=== PATIENT | male | born 1960 | race Caucasian/White ===

== ENCOUNTER → 2020-04-23 10:08 | Outpatient (BNVA) | payer MEDICARE, MEDICAID, SELFPAY | PROVIDERS: Family Provider Family Medicine; PCP Family Medicine; Visit Provider Family Medicine | DX: I10 Essential (primary) hypertension (principal); E11.42 Type 2 diabetes mellitus with diabetic polyneuropathy; Z79.4 Long term (current) use of insulin; E78.2 Mixed hyperlipidemia; G47.00 Insomnia, unspecified; E78.5 Hyperlipidemia, unspecified; I25.10 Atherosclerotic heart disease of native coronary artery without angina pectoris; R53.83 Other fatigue; F51.01 Primary insomnia; Z68.32 Body mass index [BMI] 32.0-32.9, adult; Z79.899 Other long term (current) drug therapy | CPT/HCPCS: 80053; 80061; 82607; 82652; 83036; 84443; 85025 ==

== ENCOUNTER → 2020-06-11 13:00 | Outpatient (BNVA) | payer MEDICARE, MEDICAID, SELFPAY | PROVIDERS: Family Provider Family Medicine; PCP Family Medicine; Referring Provider Family Medicine; Visit Provider Family Medicine | DX: R53.83 Other fatigue (principal) | CPT/HCPCS: 84439; 84443; 84481 ==

== ENCOUNTER → 2020-07-09 13:41 | Outpatient (BNVA) | payer MEDICARE, MEDICAID, SELFPAY | PROVIDERS: Family Provider Family Medicine; PCP Family Medicine; Referring Provider Family Medicine; Visit Provider Internal Medicine | DX: E05.90 Thyrotoxicosis, unspecified without thyrotoxic crisis or storm (principal); E11.42 Type 2 diabetes mellitus with diabetic polyneuropathy; Z79.4 Long term (current) use of insulin; I10 Essential (primary) hypertension | CPT/HCPCS: 99204 ==

== ENCOUNTER → 2020-07-14 08:27 | Outpatient (BNVA) | payer MEDICARE, MEDICAID, SELFPAY | PROVIDERS: Family Provider Family Medicine; PCP Family Medicine; Referring Provider Internal Medicine; Visit Provider Internal Medicine | DX: E05.90 Thyrotoxicosis, unspecified without thyrotoxic crisis or storm (principal) | CPT/HCPCS: 83516 ==

== ENCOUNTER → 2020-09-29 10:28 | Outpatient (BNVA) | payer MEDICARE, MEDICAID, SELFPAY | PROVIDERS: Family Provider Family Medicine; PCP Family Medicine; Visit Provider Family Medicine | DX: E11.9 Type 2 diabetes mellitus without complications (principal); E11.42 Type 2 diabetes mellitus with diabetic polyneuropathy; Z79.4 Long term (current) use of insulin; I10 Essential (primary) hypertension; I25.10 Atherosclerotic heart disease of native coronary artery without angina pectoris; E78.5 Hyperlipidemia, unspecified; E05.90 Thyrotoxicosis, unspecified without thyrotoxic crisis or storm; F51.01 Primary insomnia; R79.89 Other specified abnormal findings of blood chemistry; E78.2 Mixed hyperlipidemia | CPT/HCPCS: 80053; 83036; 84439; 84443; 84480 ==

== ENCOUNTER → 2020-10-02 09:48 | Outpatient (BNVA) | payer MEDICARE, MEDICAID, SELFPAY | PROVIDERS: Family Provider Family Medicine; PCP Family Medicine; Visit Provider Internal Medicine | DX: E05.90 Thyrotoxicosis, unspecified without thyrotoxic crisis or storm (principal); E11.42 Type 2 diabetes mellitus with diabetic polyneuropathy; Z79.4 Long term (current) use of insulin; I10 Essential (primary) hypertension; R74.01 Elevation of levels of liver transaminase levels | CPT/HCPCS: 99213 ==

== ENCOUNTER → 2020-12-03 11:48 | Outpatient (BNVA) | payer MEDICARE, MEDICAID, SELFPAY | PROVIDERS: Family Provider Family Medicine; PCP Family Medicine; Referring Provider Internal Medicine; Visit Provider Internal Medicine | DX: E05.90 Thyrotoxicosis, unspecified without thyrotoxic crisis or storm (principal); Z79.899 Other long term (current) drug therapy; R74.01 Elevation of levels of liver transaminase levels | CPT/HCPCS: 80053; 84439; 84443; 84480 ==

== ENCOUNTER → 2020-12-05 09:58 | Outpatient (BNVA) | payer MEDICARE, MEDICAID, SELFPAY | PROVIDERS: Family Provider Family Medicine; PCP Family Medicine; Visit Provider Internal Medicine | DX: E05.90 Thyrotoxicosis, unspecified without thyrotoxic crisis or storm (principal); E87.2 Acidosis; I10 Essential (primary) hypertension | CPT/HCPCS: 99214 ==

== ENCOUNTER 2021-05-10 16:28 | Emergency (ER) | payer MEDICARE, MEDICAID, SELFPAY ==
[2021-05-10 17:19] VITALS: BP 181/77; PULSE 96; RESP 22; TEMP 38.4; O2SAT 94; BMI 29.0
--- NOTE | 2021-05-10 17:24 | XRR_ITS ---
PROCEDURE INFORMATION: Exam: XR Chest Exam date and time: 05/10/2021 5:24 PM Age: 61 years old Clinical indication: Shortness of breath; Prior surgery; Surgery type: Cardiac stents; Patient HX: SOB; Additional info: Dyspnea fever TECHNIQUE: Imaging protocol: XR of the chest. Views: 1 view. COMPARISON: CR Chest 1 [place] [id number] 06/28/2017 2:14 PM FINDINGS: Lungs: There is a right upper lobe parenchymal density consistent with pneumonia Pleural spaces: Unremarkable. No pleural effusion. No pneumothorax. Heart/Mediastinum: Unremarkable. No cardiomegaly. Bones/joints: Unremarkable. XR/XR chest 1V portable [id number] IMPRESSION: Right upper lobe pneumonia
--- NOTE | 2021-05-10 17:24 | ECG_ITS ---
[facility] Test Date: 2021-05-10 Pat Name: Solis Fischer Department: Room: Gender: Male Otolaryngologist: : 1960 Requested By: Ajay Fields Order Number: [id number] Reading MD: ZACH WANG Measurements Intervals [place] Rate: 87 P: 70 [place]: 170 QRS: 31 QRSD: 82 T: 123 QT: 340 QTc: 410 Interpretive Statements SINUS RHYTHM POSSIBLE LEFT ATRIAL ENLARGEMENT [-0.1mV P WAVE IN V1/V2] ST DEVIATION AND MODERATE T-WAVE ABNORMALITY, CONSIDER ANTEROLATERAL ISCHEMIA [-0.1+ mV T WAVE IN V3-V6] Compared to ECG 06/30/2017 04:29:53 No significant changes Electronically Signed On 05-11-2021 23:34:44 CDT by ZACH WANG [id number]
--- NOTE | 2021-05-10 17:28 | ED_ITS ---
Documented by User: Ajay Joseph DO 05/10/21 18:15 HPI - Fever General: Chief Complaint: Fever Stated Complaint: headache, sense of falling Time Seen by Provider: 05/10/21 17:24 History of Present Illness: HPI Narrative: 61-year-old male presents with fever cough generalized weakness myalgias and decreased appetite began today. Patient has had some nausea he denies any diarrhea. Has not had any anosmia. He has some mild myalgias no real abdominal pain no dysuria urgency or frequency he is at a slightly productive cough but mostly clear mucousy sputum nothing purulent. He is diabetic and has a known history of heart disease he denies any chest pain. His has been vaccinated and is asymptomatic at this time but he unfortunately has not yet been vaccinated. MD elicited complaint: fever, malaise and weakness Pertinent past history: diabetes Onset (ago): minute(s) Measured temperature: 101.1 F Exacerbating factors: nothing Relieving factors: nothing Associated symptoms: Reports chills, cough, headache(s), myalgias, nausea and short of breath; Deny abdominal pain, flank pain, chest pain, confusion, diarrhea, dysuria, extremity pain, nasal congestion, night sweats, rash, rhinorrhea, sinus pain, stiffness, sore throat, vomiting or weight loss Treatments prior to arrival fever: none Review of Systems Const: Reports: chills; Denies: night sweats ENMT: Denies: nasal congestion or sinus pain Card: Denies: chest pain Resp: Denies: dyspnea, productive cough or non-productive cough GI: Reports: nausea; Denies: abdominal pain, vomiting or diarrhea : Denies: flank pain or dysuria Musc: Denies: extremity pain Skin/Breast: Denies: rash or pruritus Neuro: Reports: headache(s); Denies: confusion PFSH ED PFSH: Medical History CAD (coronary artery disease) History of stent Diabetic neuropathy Essential hypertension History of myocardial infarction Hyperlipidemia Type 2 diabetes mellitus Surgical History Stented coronary artery Family History Mother CAD (coronary artery disease) Sister Cancer Social History Smoking and tobacco status: current every day smoker cigarettes Packs smoked per day: 1.5 Quit status (tobacco): not considering quitting Second hand smoke exposure: No Alcohol intake: never Desire information about alcohol rehabilitation?: No Desire information about substance/drug rehabilitation?: No History of recent travel: No Current gender identity: Male Physical Exam Const: COMMON NORMALS: no acute distress GENERAL APPEARANCE: cooperative and comfortable ORIENTATION/CONSCIOUSNESS: Yes awake, Yes oriented to person, Yes oriented to place and Yes oriented to time HENMT: COMMON NORMALS: normocephalic, atraumatic and hearing grossly normal bilaterally HEAD & SCALP: normocephalic and atraumatic Neck/C-Spine: COMMON NORMALS: no JVD Resp: COMMON NORMALS: normal respiratory effort, No retractions, No use of accessory muscles and clear to auscultation bilaterally AUSCULTATION: clear to auscultation bilaterally Cardio: COMMON NORMALS: no JVD, regular rate, regular rhythm and No murmurs present (Cardio) RATE: regular rate RHYTHM: regular rhythm GI: COMMON NORMALS: Soft to palpation and No hepatosplenomegaly present AUSCULTATION: Yes normoactive bowel sounds PALPATION: Yes Soft to palpation, No Tenderness to palpation present (GI), No Guarding due to palpation present (GI) and Yes No hepatosplenomegaly present Extremity: COMMON NORMALS: normal to inspection, capillary refill normal, no clubbing, cyanosis or edema, no calf tenderness and no pedal edema Neuro: SENSORIUM/ORIENTATION: Yes oriented to person, Yes oriented to place and Yes oriented to time Skin: COMMON NORMALS: no rashes or lesions noted GENERAL SKIN EXAM: no rashes or lesions noted Course Vital Signs: Vital signs: Vital Signs Temperature 101.1 F H 05/10/21 17:19 Pulse Rate 91 05/10/21 22:22 Respiratory Rate 22 H 05/10/21 22:22 Blood Pressure 176/70 05/10/21 22:22 Pulse Oximetry 94 05/10/21 22:22 MDM - Fever MDM Narrative: Medical decision making narrative: Turned over to Dr. Morgan at change of shift see his notes for final diagnosis and disposition Lab Data: Labs: Lab Results 05/10/21 05/10/21 05/10/21 Range/Units 17:53 18:33 18:33 WBC (4.0-10.0) 10^3/ uL RBC (4.1-5.3) 10^6/u L Hgb (11.7-16.6) g/dL Hct (42.0-52.0) % MCV (80-94) fL MCH (28.0-34.0) pg MCHC (30.0-36.0) g/dL RDW (12.1-15.1) % Plt Count (130-400) 10^3/c mm MPV (7.4-10.4) fL Neut % (Auto) % Lymph % (Auto) % [place] % (Auto) % Eos % (Auto) % Baso % (Auto) % Neut # (Auto) (1.8-7.7) 10^3/u L Lymph # (Auto) (0.8-4.8) 10^3/u L [place] # (Auto) (0.2-0.9) 10^3/u L Eos # (Auto) (0.0-0.8) 10^3/u L Baso # (Auto) (0.0-0.1) 10^3/u L Nucleated RBC % (a uto) % Nucleated RBCs # /100WBC D-Dimer (0-0.59) ug/mIFE U Specimen Type Arterial Sample Site Brachial, left ABG pH 7.49 H (7.35-7.45) ABG pCO2 27.6 L (35-45) mmHg ABG pO2 67.6 L (80.0-100.0) mmH g ABG HCO3 20.9 L (22-26) mmol/L ABG Base Excess -0.7 (-2.0-2.0) mmol/ L Bill Test Pos Hematocrit 53.2 H (42-52) % Injection Operator ID Jmnn Sodium (136-145) mmol/L Potassium (3.5-5.1) mmol/L Chloride (98-107) mmol/L Carbon Dioxide (22-29) mmol/L Anion Gap (5-19) BUN (8-23) mg/dL Creatinine (0.7-1.2) mg/dL GFR Calculation (90-130) mL/min Glucose (65-115) mg/dL Calculated Osmolal ity (285-295) mOsm/k g Lactic Acid (0.5-2.2) mmol/L Calcium (8.5-10.5) mg/dL Total Bilirubin (0.15-1.2) mg/dL AST (0-40) U/L ALT (0-41) U/L Alkaline Phosphata se (40-130) IU/L Creatine Kinase (39-308) U/L Troponin T Baselin e (0-15) ng/L C-Reactive Protein (0.0-4.9) mg/L Total Protein (6.6-8.7) g/dL Albumin (3.5-5.2) g/dL Globulin (1.3-4.6) g/dL Procalcitonin (0-0.5) ng/mL Influenza Type A A g Negative (Negative) Influenza Type B A g Negative (Negative) SARS-CoV-2 Ag (Rap id) Negative (Negative) 05/10/21 05/10/21 05/10/21 Range/Units 19:20 19:20 19:20 WBC 14.9 H (4.0-10.0) 10^3/ uL RBC 5.64 H (4.1-5.3) 10^6/u L Hgb 17.2 H (11.7-16.6) g/dL Hct 47.4 (42.0-52.0) % MCV 84.0 (80-94) fL MCH 30.5 (28.0-34.0) pg MCHC 36.3 H (30.0-36.0) g/dL RDW 12.3 (12.1-15.1) % Plt Count 177 (130-400) 10^3/c mm MPV 10.8 H (7.4-10.4) fL Neut % (Auto) 73.7 % Lymph % (Auto) 13.4 % [place] % (Auto) 11.7 % Eos % (Auto) 0.1 % Baso % (Auto) 0.6 % Neut # (Auto) 10.97 H (1.8-7.7) 10^3/u L Lymph # (Auto) 2.0 (0.8-4.8) 10^3/u L [place] # (Auto) 1.7 H (0.2-0.9) 10^3/u L Eos # (Auto) 0.0 (0.0-0.8) 10^3/u L Baso # (Auto) 0.1 (0.0-0.1) 10^3/u L Nucleated RBC % (a uto) 0 % Nucleated RBCs # 0.0 /100WBC D-Dimer 0.43 (0-0.59) ug/mIFE U Specimen Type Sample Site ABG pH (7.35-7.45) ABG pCO2 (35-45) mmHg ABG pO2 (80.0-100.0) mmH g ABG HCO3 (22-26) mmol/L ABG Base Excess (-2.0-2.0) mmol/ L Bill Test Hematocrit (42-52) % Injection Operator ID Sodium 127 L (136-145) mmol/L Potassium 3.8 (3.5-5.1) mmol/L Chloride 93 L (98-107) mmol/L Carbon Dioxide 18 L (22-29) mmol/L Anion Gap 19.8 H (5-19) BUN 9 (8-23) mg/dL Creatinine 0.7 (0.7-1.2) mg/dL GFR Calculation 114.3 (90-130) mL/min Glucose 163 H (65-115) mg/dL Calculated Osmolal ity 266 L (285-295) mOsm/k g Lactic Acid (0.5-2.2) mmol/L Calcium 8.8 (8.5-10.5) mg/dL Total Bilirubin 1.1 (0.15-1.2) mg/dL AST 12 (0-40) U/L ALT 13 (0-41) U/L Alkaline Phosphata se 76 (40-130) IU/L Creatine Kinase 40 (39-308) U/L Troponin T Baselin e (0-15) ng/L C-Reactive Protein 99.5 H (0.0-4.9) mg/L Total Protein 7.2 (6.6-8.7) g/dL Albumin 4.1 (3.5-5.2) g/dL Globulin 3.1 (1.3-4.6) g/dL Procalcitonin 0.16 (0-0.5) ng/mL Influenza Type A A g (Negative) Influenza Type B A g (Negative) SARS-CoV-2 Ag (Rap id) (Negative) 05/10/21 05/10/21 Range/Units 19:20 19:20 WBC (4.0-10.0) 10^3/ uL RBC (4.1-5.3) 10^6/u L Hgb (11.7-16.6) g/dL Hct (42.0-52.0) % MCV (80-94) fL MCH (28.0-34.0) pg MCHC (30.0-36.0) g/dL RDW (12.1-15.1) % Plt Count (130-400) 10^3/c mm MPV (7.4-10.4) fL Neut % (Auto) % Lymph % (Auto) % [place] % (Auto) % Eos % (Auto) % Baso % (Auto) % Neut # (Auto) (1.8-7.7) 10^3/u L Lymph # (Auto) (0.8-4.8) 10^3/u L [place] # (Auto) (0.2-0.9) 10^3/u L Eos # (Auto) (0.0-0.8) 10^3/u L Baso # (Auto) (0.0-0.1) 10^3/u L Nucleated RBC % (a uto) % Nucleated RBCs # /100WBC D-Dimer (0-0.59) ug/mIFE U Specimen Type Sample Site ABG pH (7.35-7.45) ABG pCO2 (35-45) mmHg ABG pO2 (80.0-100.0) mmH g ABG HCO3 (22-26) mmol/L ABG Base Excess (-2.0-2.0) mmol/ L Bill Test Hematocrit (42-52) % Injection Operator ID Sodium (136-145) mmol/L Potassium (3.5-5.1) mmol/L Chloride (98-107) mmol/L Carbon Dioxide (22-29) mmol/L Anion Gap (5-19) BUN (8-23) mg/dL Creatinine (0.7-1.2) mg/dL GFR Calculation (90-130) mL/min Glucose (65-115) mg/dL Calculated Osmolal ity (285-295) mOsm/k g Lactic Acid 1.4 (0.5-2.2) mmol/L Calcium (8.5-10.5) mg/dL Total Bilirubin (0.15-1.2) mg/dL AST (0-40) U/L ALT (0-41) U/L Alkaline Phosphata se (40-130) IU/L Creatine Kinase (39-308) U/L Troponin T Baselin e 11 (0-15) ng/L C-Reactive Protein (0.0-4.9) mg/L Total Protein (6.6-8.7) g/dL Albumin (3.5-5.2) g/dL Globulin (1.3-4.6) g/dL Procalcitonin (0-0.5) ng/mL Influenza Type A A g (Negative) Influenza Type B A g (Negative) SARS-CoV-2 Ag (Rap id) (Negative) Discharge Plan Discharge Patient Disposition: Home Clinical Impression: Viral infection Condition: Stable Prescriptions: New dexamethasone 6 mg tablet 6 mg PO DAILY Qty: 5 RF: 0 doxycycline hyclate 100 mg capsule 100 mg PO BID 7 Days Qty: 14 RF: 0 No Action methimazole 5 mg tablet 5 mg PO BID Qty: 90 RF: 3 metoprolol succinate 25 mg tablet extended release 24 hr 25 mg PO DAILY 30 Days Qty: 30 RF: 5 lisinopril 30 mg tablet 30 mg PO DAILY 30 Days Qty: 30 RF: 5 Advil 200 mg Tablet 400 mg PO PRN RF: 0 metformin 500 mg tablet 500 mg PO BID RF: 0 clopidogrel 75 mg tablet 75 mg PO DAILY RF: 0 aspirin 81 mg tablet,delayed release (DR/EC) 81 mg PO QAM RF: 0 rosuvastatin 20 mg tablet 20 mg PO QPM RF: 0 Discharge Orders: Discharge ED (Routine); Ordered 05/10/21 Ordered By: Dayday Morgan Referrals: Lalitha Jules MD [Primary Care Provider] - 4-7 days Patient Instructions: Viral Syndrome (ED) Activity Restrictions/Additional Instructions: Return for inability to control fever, worsening shortness of breath despite treatment, chest pain or discomfort, any other concerning symptoms. A confirmatory PCR test for COVID-19 has been sent. He will get a call in 48 hours or so with those results. Continue to quarantine at home until that result is negative. Given your risk factors, you are being covered with antibiotics. If your PCR is positive, we will have you return for monoclonal antibody infusion. Coding Level of Care Code ED Lease Broker for Chg Fwd Exam Comprehensive Documented by User: Dayday Morgan DO 05/11/21 01:23 HPI - Fever General: Chief Complaint: Fever Stated Complaint: headache, sense of falling Time Seen by Provider: 05/10/21 17:24 PFSH ED PFSH: Medical History CAD (coronary artery disease) History of stent Diabetic neuropathy Essential hypertension History of myocardial infarction Hyperlipidemia Type 2 diabetes mellitus Surgical History Stented coronary artery Family History Mother CAD (coronary artery disease) Sister Cancer Social History Smoking and tobacco status: current every day smoker cigarettes Packs smoked per day: 1.5 Quit status (tobacco): not considering quitting Second hand smoke exposure: No Alcohol intake: never Desire information about alcohol rehabilitation?: No Desire information about substance/drug rehabilitation?: No History of recent travel: No Current gender identity: Male Course Vital Signs: Vital signs: Vital Signs Temperature 101.1 F H 05/10/21 17:19 Pulse Rate 91 05/10/21 22:22 Respiratory Rate 22 H 05/10/21 22:22 Blood Pressure 176/70 05/10/21 22:22 Pulse Oximetry 94 05/10/21 22:22 MDM - Fever MDM Narrative: Medical decision making narrative: 61-year-old male diabetic with fever, cough, malaise, and myalgias. His Covid rapid test is negative. PCR is pending. White blood cell count is 15. His bicarbonate level is 18. Sodium is 127. Chest x-ray is negative. He will be covered with doxycycline. He will be given dexamethasone he was told to return for monoclonal antibody infusion if his PCR turns positive for over 19. His first troponin is normal. The patient is a little agitated at this prolonged stay, and would like to go home. He will be discharged. Lab Data: Labs: Lab Results 05/10/21 05/10/21 05/10/21 Range/Units 17:53 18:33 18:33 WBC (4.0-10.0) 10^3/ uL RBC (4.1-5.3) 10^6/u L Hgb (11.7-16.6) g/dL Hct (42.0-52.0) % MCV (80-94) fL MCH (28.0-34.0) pg MCHC (30.0-36.0) g/dL RDW (12.1-15.1) % Plt Count (130-400) 10^3/c mm MPV (7.4-10.4) fL Neut % (Auto) % Lymph % (Auto) % [place] % (Auto) % Eos % (Auto) % Baso % (Auto) % Neut # (Auto) (1.8-7.7) 10^3/u L Lymph # (Auto) (0.8-4.8) 10^3/u L [place] # (Auto) (0.2-0.9) 10^3/u L Eos # (Auto) (0.0-0.8) 10^3/u L Baso # (Auto) (0.0-0.1) 10^3/u L Nucleated RBC % (a uto) % Nucleated RBCs # /100WBC D-Dimer (0-0.59) ug/mIFE U Specimen Type Arterial Sample Site Brachial, left ABG pH 7.49 H (7.35-7.45) ABG pCO2 27.6 L (35-45) mmHg ABG pO2 67.6 L (80.0-100.0) mmH g ABG HCO3 20.9 L (22-26) mmol/L ABG Base Excess -0.7 (-2.0-2.0) mmol/ L Bill Test Pos Hematocrit 53.2 H (42-52) % Injection Operator ID Jmnn Sodium (136-145) mmol/L Potassium (3.5-5.1) mmol/L Chloride (98-107) mmol/L Carbon Dioxide (22-29) mmol/L Anion Gap (5-19) BUN (8-23) mg/dL Creatinine (0.7-1.2) mg/dL GFR Calculation (90-130) mL/min Glucose (65-115) mg/dL Calculated Osmolal ity (285-295) mOsm/k g Lactic Acid (0.5-2.2) mmol/L Calcium (8.5-10.5) mg/dL Total Bilirubin (0.15-1.2) mg/dL AST (0-40) U/L ALT (0-41) U/L Alkaline Phosphata se (40-130) IU/L Creatine Kinase (39-308) U/L Troponin T Baselin e (0-15) ng/L C-Reactive Protein (0.0-4.9) mg/L Total Protein (6.6-8.7) g/dL Albumin (3.5-5.2) g/dL Globulin (1.3-4.6) g/dL Procalcitonin (0-0.5) ng/mL Influenza Type A A g Negative (Negative) Influenza Type B A g Negative (Negative) SARS-CoV-2 Ag (Rap id) Negative (Negative) 05/10/21 05/10/21 05/10/21 Range/Units 19:20 19:20 19:20 WBC 14.9 H (4.0-10.0) 10^3/ uL RBC 5.64 H (4.1-5.3) 10^6/u L Hgb 17.2 H (11.7-16.6) g/dL Hct 47.4 (42.0-52.0) % MCV 84.0 (80-94) fL MCH 30.5 (28.0-34.0) pg MCHC 36.3 H (30.0-36.0) g/dL RDW 12.3 (12.1-15.1) % Plt Count 177 (130-400) 10^3/c mm MPV 10.8 H (7.4-10.4) fL Neut % (Auto) 73.7 % Lymph % (Auto) 13.4 % [place] % (Auto) 11.7 % Eos % (Auto) 0.1 % Baso % (Auto) 0.6 % Neut # (Auto) 10.97 H (1.8-7.7) 10^3/u L Lymph # (Auto) 2.0 (0.8-4.8) 10^3/u L [place] # (Auto) 1.7 H (0.2-0.9) 10^3/u L Eos # (Auto) 0.0 (0.0-0.8) 10^3/u L Baso # (Auto) 0.1 (0.0-0.1) 10^3/u L Nucleated RBC % (a uto) 0 % Nucleated RBCs # 0.0 /100WBC D-Dimer 0.43 (0-0.59) ug/mIFE U Specimen Type Sample Site ABG pH (7.35-7.45) ABG pCO2 (35-45) mmHg ABG pO2 (80.0-100.0) mmH g ABG HCO3 (22-26) mmol/L ABG Base Excess (-2.0-2.0) mmol/ L Bill Test Hematocrit (42-52) % Injection Operator ID Sodium 127 L (136-145) mmol/L Potassium 3.8 (3.5-5.1) mmol/L Chloride 93 L (98-107) mmol/L Carbon Dioxide 18 L (22-29) mmol/L Anion Gap 19.8 H (5-19) BUN 9 (8-23) mg/dL Creatinine 0.7 (0.7-1.2) mg/dL GFR Calculation 114.3 (90-130) mL/min Glucose 163 H (65-115) mg/dL Calculated Osmolal ity 266 L (285-295) mOsm/k g Lactic Acid (0.5-2.2) mmol/L Calcium 8.8 (8.5-10.5) mg/dL Total Bilirubin 1.1 (0.15-1.2) mg/dL AST 12 (0-40) U/L ALT 13 (0-41) U/L Alkaline Phosphata se 76 (40-130) IU/L Creatine Kinase 40 (39-308) U/L Troponin T Baselin e (0-15) ng/L C-Reactive Protein 99.5 H (0.0-4.9) mg/L Total Protein 7.2 (6.6-8.7) g/dL Albumin 4.1 (3.5-5.2) g/dL Globulin 3.1 (1.3-4.6) g/dL Procalcitonin 0.16 (0-0.5) ng/mL Influenza Type A A g (Negative) Influenza Type B A g (Negative) SARS-CoV-2 Ag (Rap id) (Negative) 05/10/21 05/10/21 Range/Units 19:20 19:20 WBC (4.0-10.0) 10^3/ uL RBC (4.1-5.3) 10^6/u L Hgb (11.7-16.6) g/dL Hct (42.0-52.0) % MCV (80-94) fL MCH (28.0-34.0) pg MCHC (30.0-36.0) g/dL RDW (12.1-15.1) % Plt Count (130-400) 10^3/c mm MPV (7.4-10.4) fL Neut % (Auto) % Lymph % (Auto) % [place] % (Auto) % Eos % (Auto) % Baso % (Auto) % Neut # (Auto) (1.8-7.7) 10^3/u L Lymph # (Auto) (0.8-4.8) 10^3/u L [place] # (Auto) (0.2-0.9) 10^3/u L Eos # (Auto) (0.0-0.8) 10^3/u L Baso # (Auto) (0.0-0.1) 10^3/u L Nucleated RBC % (a uto) % Nucleated RBCs # /100WBC D-Dimer (0-0.59) ug/mIFE U Specimen Type Sample Site ABG pH (7.35-7.45) ABG pCO2 (35-45) mmHg ABG pO2 (80.0-100.0) mmH g ABG HCO3 (22-26) mmol/L ABG Base Excess (-2.0-2.0) mmol/ L Bill Test Hematocrit (42-52) % Injection Operator ID Sodium (136-145) mmol/L Potassium (3.5-5.1) mmol/L Chloride (98-107) mmol/L Carbon Dioxide (22-29) mmol/L Anion Gap (5-19) BUN (8-23) mg/dL Creatinine (0.7-1.2) mg/dL GFR Calculation (90-130) mL/min Glucose (65-115) mg/dL Calculated Osmolal ity (285-295) mOsm/k g Lactic Acid 1.4 (0.5-2.2) mmol/L Calcium (8.5-10.5) mg/dL Total Bilirubin (0.15-1.2) mg/dL AST (0-40) U/L ALT (0-41) U/L Alkaline Phosphata se (40-130) IU/L Creatine Kinase (39-308) U/L Troponin T Baselin e 11 (0-15) ng/L C-Reactive Protein (0.0-4.9) mg/L Total Protein (6.6-8.7) g/dL Albumin (3.5-5.2) g/dL Globulin (1.3-4.6) g/dL Procalcitonin (0-0.5) ng/mL Influenza Type A A g (Negative) Influenza Type B A g (Negative) SARS-CoV-2 Ag (Rap id) (Negative) Discharge Plan Discharge Patient Disposition: Home Clinical Impression: Viral infection Condition: Stable Prescriptions: New dexamethasone 6 mg tablet 6 mg PO DAILY Qty: 5 RF: 0 doxycycline hyclate 100 mg capsule 100 mg PO BID 7 Days Qty: 14 RF: 0 No Action methimazole 5 mg tablet 5 mg PO BID Qty: 90 RF: 3 metoprolol succinate 25 mg tablet extended release 24 hr 25 mg PO DAILY 30 Days Qty: 30 RF: 5 lisinopril 30 mg tablet 30 mg PO DAILY 30 Days Qty: 30 RF: 5 Advil 200 mg Tablet 400 mg PO PRN RF: 0 metformin 500 mg tablet 500 mg PO BID RF: 0 clopidogrel 75 mg tablet 75 mg PO DAILY RF: 0 aspirin 81 mg tablet,delayed release (DR/EC) 81 mg PO QAM RF: 0 rosuvastatin 20 mg tablet 20 mg PO QPM RF: 0 Discharge Orders: Discharge ED (Routine); Ordered 05/10/21 Ordered By: Dayday Morgan Referrals: Lalitha Jules MD [Primary Care Provider] - 4-7 days Patient Instructions: Viral Syndrome (ED) Activity Restrictions/Additional Instructions: Return for inability to control fever, worsening shortness of breath despite treatment, chest pain or discomfort, any other concerning symptoms. A confirmatory PCR test for COVID-19 has been sent. He will get a call in 48 hours or so with those results. Continue to quarantine at home until that result is negative. Given your risk factors, you are being covered with antibiotics. If your PCR is positive, we will have you return for monoclonal antibody infusion. Coding Level of Care Code ED Lease Broker for Andi Fwd Exam Comprehensive
[2021-05-10 18:06] LABS: ABG PCO2 27.6 mmHg (35-45); ABG PH Result 7.49 (7.35-7.45); Arterial Blood Gas Hematocrit 53.2 % (42-52); Base Excess ABG -0.7 mmol/L (-2.0-2.0); Blood Gas Allen Test Pos; Blood Gas Sample Site Brachial, left; Blood Gas Sample Type Arterial; HCO3 ABG 20.9 mmol/L (22-26); PO2 ABG 67.6 mmHg (80.0-100.0)
--- NOTE | 2021-05-10 19:14 | PC.NURSE ---
Report from GEORGIE Rico
[2021-05-10 19:37] LABS: Influenza A by IFA Negative (Negative); Influenza B by IFA Negative (Negative); SARS Covid-2 Antigen Negative (Negative)
[2021-05-10 19:52] LABS: Basophils # 0.1 10^3/uL (0.0-0.1); Basophils % 0.6 %; Eosinophils % 0.1 %; Hematocrit 47.4 % (42.0-52.0); Hemoglobin 17.2 g/dL (11.7-16.6); Lymphocytes % 13.4 %; Mean Corpuscular HGB Conc 36.3 g/dL (30.0-36.0); Mean Corpuscular Hemoglobin 30.5 pg (28.0-34.0); Mean Platelet Volume 10.8 fL (7.4-10.4); Monocytes # 1.7 10^3/uL (0.2-0.9); Monocytes % 11.7 %; Neutrophils # 10.97 10^3/uL (1.8-7.7); Neutrophils % 73.7 %; Nucleated Red Blood Cells % 0 %; Platelet Count 177 10^3/cmm (130-400); Red Blood Count 5.64 10^6/uL (4.1-5.3); Red Cell Distribution Width 12.3 % (12.1-15.1); White Blood Count 14.9 10^3/uL (4.0-10.0)
[2021-05-10 19:57] LABS: D Dimer 0.43 ug/mIFEU (0-0.59)
[2021-05-10 20:01] LABS: Lactic Sepsis W/Reflex 1.4 mmol/L (0.5-2.2)
[2021-05-10 20:27] LABS: Alanine Aminotransferase 13 U/L (0-41); Albumin Level 4.1 g/dL (3.5-5.2); Alkaline Phosphatase 76 IU/L (40-130); Anion Gap 19.8 (5-19); Aspartate Amino Transferase 12 U/L (0-40); Blood Urea Nitrogen 9 mg/dL (8-23); C Reactive Protein 99.5 mg/L (0.0-4.9); Calcium 8.8 mg/dL (8.5-10.5); Carbon Dioxide 18 mmol/L (22-29); Chloride 93 mmol/L (98-107); Creatine Phosphokinase 40 U/L (39-308); Globulin 3.1 g/dL (1.3-4.6); Glomerular Filtration Rate 114.3 mL/min (90-130); Glucose 163 mg/dL (65-115); Osmolality Calculated 266 mOsm/kg (285-295); Potassium 3.8 mmol/L (3.5-5.1); Sodium 127 mmol/L (136-145); Total Bilirubin 1.1 mg/dL (0.15-1.2); Total Protein 7.2 g/dL (6.6-8.7)
[2021-05-10 20:32] LABS: Procalcitonin 0.16 ng/mL (0-0.5)
[2021-05-10 21:56] LABS: Troponin(5th) Baseline 11 ng/L (0-15)
[2021-05-10 22:22] VITALS: BP 176/70; PULSE 91; RESP 22; O2SAT 94
[2021-05-11 15:23] LABS: Coronavirus Test Green County Not Detected
== END 2021-05-10 22:10 | disposition home or self-care (01) ==
PROVIDERS: Family Medicine; Emergency Provider Emergency Medicine; PCP Family Medicine
DX: B34.9 Viral infection, unspecified (principal); Z79.82 Long term (current) use of aspirin; Z79.02 Long term (current) use of antithrombotics/antiplatelets; Z79.84 Long term (current) use of oral hypoglycemic drugs; I25.10 Atherosclerotic heart disease of native coronary artery without angina pectoris; E11.40 Type 2 diabetes mellitus with diabetic neuropathy, unspecified; I10 Essential (primary) hypertension; I25.2 Old myocardial infarction; E78.5 Hyperlipidemia, unspecified; F17.210 Nicotine dependence, cigarettes, uncomplicated; Z20.822 Contact with and (suspected) exposure to COVID-19
CPT/HCPCS: 71045; 80053; 82550; 82803; 83605; 84145; 84484; 85025; 85378; 86140; 87040; 87426; 87635; 87804; 93005; 99283

== ENCOUNTER → 2021-05-27 10:48 | Outpatient (BNVA) | payer MEDICARE, MEDICAID, SELFPAY | PROVIDERS: PCP Family Medicine; Visit Provider Family Medicine | DX: E11.42 Type 2 diabetes mellitus with diabetic polyneuropathy (principal); Z79.4 Long term (current) use of insulin; E05.90 Thyrotoxicosis, unspecified without thyrotoxic crisis or storm; I10 Essential (primary) hypertension; I25.10 Atherosclerotic heart disease of native coronary artery without angina pectoris; E78.2 Mixed hyperlipidemia | CPT/HCPCS: 80053; 80061; 83036; 84439; 84443; 84480 ==

== ENCOUNTER → 2021-07-20 14:53 | Outpatient (BNVA) | payer MEDICARE, MEDICAID, SELFPAY | PROVIDERS: PCP Family Medicine; Visit Provider Internal Medicine | DX: E05.90 Thyrotoxicosis, unspecified without thyrotoxic crisis or storm (principal) | CPT/HCPCS: 84439; 84443; 84480 ==

== ENCOUNTER → 2021-07-23 13:23 | Outpatient (BNVA) | payer MEDICARE, MEDICAID, SELFPAY | PROVIDERS: PCP Family Medicine; Visit Provider Internal Medicine | DX: E05.90 Thyrotoxicosis, unspecified without thyrotoxic crisis or storm (principal); E11.42 Type 2 diabetes mellitus with diabetic polyneuropathy; E78.2 Mixed hyperlipidemia; I10 Essential (primary) hypertension; Z79.4 Long term (current) use of insulin | CPT/HCPCS: 99214 ==

== ENCOUNTER → 2021-09-28 16:28 | Outpatient (BNVA) | payer MEDICARE, MEDICAID, SELFPAY | PROVIDERS: PCP Family Medicine; Visit Provider Internal Medicine | DX: E05.90 Thyrotoxicosis, unspecified without thyrotoxic crisis or storm (principal); E11.42 Type 2 diabetes mellitus with diabetic polyneuropathy; E78.2 Mixed hyperlipidemia; Z79.4 Long term (current) use of insulin | CPT/HCPCS: 84439; 84443; 84480 ==

== ENCOUNTER → 2021-10-01 13:25 | Outpatient (BNVA) | payer MEDICARE, MEDICAID, SELFPAY | PROVIDERS: PCP Family Medicine; Visit Provider Internal Medicine | DX: E05.90 Thyrotoxicosis, unspecified without thyrotoxic crisis or storm (principal); I10 Essential (primary) hypertension; F17.200 Nicotine dependence, unspecified, uncomplicated | CPT/HCPCS: 99214 ==

== ENCOUNTER → 2021-10-21 13:35 | Outpatient (BNVA) | payer MEDICARE, MEDICAID, SELFPAY | PROVIDERS: PCP Family Medicine; Visit Provider Family Medicine | DX: I10 Essential (primary) hypertension (principal); E11.42 Type 2 diabetes mellitus with diabetic polyneuropathy; Z79.4 Long term (current) use of insulin; I25.10 Atherosclerotic heart disease of native coronary artery without angina pectoris; E78.2 Mixed hyperlipidemia; R20.9 Unspecified disturbances of skin sensation; E11.9 Type 2 diabetes mellitus without complications; E05.90 Thyrotoxicosis, unspecified without thyrotoxic crisis or storm | CPT/HCPCS: 80053; 83036 ==

== ENCOUNTER → 2021-12-30 14:30 | Outpatient (BNVA) | payer MEDICARE, MEDICAID, SELFPAY | PROVIDERS: PCP Family Medicine; Visit Provider Internal Medicine | DX: E05.90 Thyrotoxicosis, unspecified without thyrotoxic crisis or storm (principal); I10 Essential (primary) hypertension | CPT/HCPCS: 84439; 84443; 84480 ==

== ENCOUNTER → 2022-01-05 10:59 | Outpatient (BNVA) | payer MEDICARE, MEDICAID, SELFPAY | PROVIDERS: PCP Family Medicine; Visit Provider Internal Medicine | DX: E05.90 Thyrotoxicosis, unspecified without thyrotoxic crisis or storm (principal); I10 Essential (primary) hypertension; F17.200 Nicotine dependence, unspecified, uncomplicated; Z79.84 Long term (current) use of oral hypoglycemic drugs | CPT/HCPCS: 99213; 99214 ==

== ENCOUNTER → 2022-07-07 12:43 | Outpatient (BNVA) | payer MEDICARE, MEDICAID, SELFPAY | PROVIDERS: PCP Family Medicine; Visit Provider Family Medicine | DX: E11.42 Type 2 diabetes mellitus with diabetic polyneuropathy (principal); E11.9 Type 2 diabetes mellitus without complications; Z79.4 Long term (current) use of insulin; E78.2 Mixed hyperlipidemia; E05.90 Thyrotoxicosis, unspecified without thyrotoxic crisis or storm; I10 Essential (primary) hypertension | CPT/HCPCS: 80053; 80061; 83036; 84439; 84443; 84481 ==

== ENCOUNTER → 2022-07-08 13:22 | Outpatient (BNVA) | payer MEDICARE, MEDICAID, SELFPAY | PROVIDERS: PCP Family Medicine; Visit Provider Internal Medicine | DX: E05.90 Thyrotoxicosis, unspecified without thyrotoxic crisis or storm (principal); R74.01 Elevation of levels of liver transaminase levels; I10 Essential (primary) hypertension; F17.210 Nicotine dependence, cigarettes, uncomplicated | CPT/HCPCS: 99214 ==

== ENCOUNTER → 2022-11-09 15:59 | Outpatient (BNVA) | payer MEDICARE, MEDICAID, SELFPAY | PROVIDERS: PCP Family Medicine; Visit Provider Emergency Medicine | DX: R05.9 Cough, unspecified (principal); J00 Acute nasopharyngitis [common cold]; J40 Bronchitis, not specified as acute or chronic | CPT/HCPCS: 87071; 87426; 87880 ==

== ENCOUNTER 2023-01-03 19:43 | Emergency (ER) | payer MEDICARE, MEDICAID, SELFPAY ==
[2023-01-03 19:47] VITALS: BP 198/91; PULSE 73; RESP 18; TEMP 36.6; O2SAT 97
[2023-01-03 21:20] LABS: Add Urine Culture? Yes; Add Urine Microscopic? YES; Bacteria Urine TRACE /hpf; Bilirubin Urine Neg (Negative); Blood Urine 3+ (Negative); Glucose Urine UA 4+ (Normal); Ketones Urine 1+ (Negative); Leukocyte Esterase Urine Trace (Negative); Nitrate Urine Negative (Negative); Protein Urine 3+ (Negative); RBC Urine TOO NUMEROUS TO CNT /hpf (0-2); Specific Gravity, Urine 1.015 (1.005-1.030); Squamous Epithelial Cell Urine 0-4 /hpf (0-5); Urine Appearance Bloody (CLEAR); Urine Color Red (Yellow); Urobilinogen Urine Norm (Negative); WBC Urine 55-80 /hpf (0-5); pH Urine 6 (5-7)
[2023-01-03 21:40] LABS: Basophils # 0.2 10^3/uL (0.0-0.1); Basophils % 0.9 %; Eosinophils # 0.4 10^3/uL (0.0-0.8); Eosinophils % 2.5 %; Hemoglobin 17.1 g/dL (11.7-16.6); Lymphocytes # 3.3 10^3/uL (0.8-4.8); Lymphocytes % 18.6 %; Mean Corpuscular HGB Conc 34.9 g/dL (30.0-36.0); Mean Corpuscular Hemoglobin 30.6 pg (28.0-34.0); Mean Corpuscular Volume 87.7 fl (80-94); Mean Platelet Volume 10.1 fL (7.4-10.4); Monocytes # 1.3 10^3/uL (0.2-0.9); Monocytes % 7.5 %; Neutrophils # 12.32 10^3/uL (1.8-7.7); Nucleated Red Blood Cells % 0 %; Platelet Count 260 10^3/cmm (130-400); Red Blood Count 5.59 10^6/uL (4.1-5.3); Red Cell Distribution Width 13.3 % (12.1-15.1); White Blood Count 17.6 10^3/uL (4.0-10.0)
[2023-01-03 21:55] VITALS: BP 154/87; PULSE 66; RESP 16; O2SAT 95
--- NOTE | 2023-01-03 21:57 | PC.NURSE ---
Pt presents to ED c/o hematuria that started today with bilateral flank pain starting Tuesday. Pt states he has interruptions in urinary stream and brown urine. Pt states he worries that it is related to the stent he had placed in his femoral vein in 2017 due to a heart attack. Pt is currently in no pain and resting in bed with family at bedside.
--- NOTE | 2023-01-03 21:59 | CTR_ITS ---
PROCEDURE INFORMATION: Exam: CT Abdomen And Pelvis Without Contrast Exam date and time: 01/03/2023 10:07 PM Age: 62 years old Clinical indication: Abdominal pain; Prior surgery; Surgery type: Coronary stent; Patient HX: C/O left flank pain with gross hematuria. ; Additional info: Flank pain/hematuria TECHNIQUE: Imaging protocol: Computed tomography of the abdomen and pelvis without contrast. Radiation optimization: All CT scans at this facility use at least one of these dose optimization techniques: automated exposure control; mA and/or kV adjustment per patient size (includes targeted exams where dose is matched to clinical indication); or iterative reconstruction. REPORTING DATA: Count of CT and Cardiac NM exams in prior 12 months: This patient has received 0 known CTs and 0 known cardiac nuclear medicine studies in the 12 months prior to the current study. COMPARISON: CR XR chest 1V portable [id number] 05/10/2021 5:32 PM RADIATION DOSE METRICS: Total DLP (mGy-cm): 736.46 FINDINGS: Limitations: The absence of intravenous contrast lessens the sensitivity of this study for solid organ abnormalities. Lungs: Lung bases are clear. There is some calcified granulomas at the lung bases. Liver: There is no focal abnormality within the liver. Gallbladder and bile ducts: The gallbladder is normal. Pancreas: The pancreas is normal. Spleen: The spleen demonstrates punctate calcifications, consistent with remote granulomatous organism exposure. Adrenal glands: The adrenal glands are normal. Kidneys and ureters: The right kidney is normal. There is a left renal collecting system calcification. There is no evidence of hydronephrosis. There is no stone along the course of either ureter. Stomach and bowel: There is no evidence of colitis/diverticulitis. There is no evidence of intestinal obstruction. Appendix: A normal appendix is identified. Intraperitoneal space: There is no evidence of free intraperitoneal fluid. Vasculature: The aorta demonstrates mild atherosclerotic calcification. Lymph nodes: There is no evidence of lymphadenopathy. Urinary bladder: Urinary bladder is diffusely abnormally thickened and there is stranding in the adjacent fat. Findings are highly worrisome for urinary bladder infection. Please correlate with clinical and laboratory findings. Reproductive: Unremarkable as visualized. Bones/joints: Unremarkable. No acute fracture. Soft tissues: There are small bilateral inguinal hernias containing only fat. CT/CT kidney stone 11571 IMPRESSION: Findings worrisome for severe cystitis. Other bladder pathology not excluded.
--- NOTE | 2023-01-03 22:02 | W.ED.MALEGU ---
HPI - Male Genitourinary General: Chief complaint: Urogenital-Male Stated complaint: low back pain; urinating blood Time Seen by Provider: 01/03/23 21:44 Source: patient Mode of arrival: ambulatory Limitations: no limitations History of Present Illness: 62-year-old male states that he has had some left-sided flank pain today. He states he is also been having some hematuria he has noticed in his urine. He states that now his pain has improved he still has some hematuria denies any fever denies any vomiting denies any worsening proving factors. Associated symptoms: Reports hematuria; Deny nausea or vomiting Review of Systems Const: Denies: fever(s), chills, body aches or change in appetite Eyes: Denies: blurry vision or eye discomfort ENMT: Denies: throat pain or dental pain Card: Denies: chest pain Resp: Denies: dyspnea GI: Denies: abdominal pain, nausea, vomiting or diarrhea : Reports: flank pain and hematuria Musc: Denies: neck pain or back pain Skin/Breast: Denies: rash Neuro: Denies: headache(s) Psych: Denies: depression Santiago/Lymph: Denies: easy bruising All/Imm: Denies: urticaria PFSH ED PFSH: Medical History CAD (coronary artery disease) History of stent Diabetic neuropathy Essential hypertension History of myocardial infarction Hyperlipidemia Type 2 diabetes mellitus Surgical History Stented coronary artery Family History Mother CAD (coronary artery disease) Sister Cancer Social History Smoking and tobacco status: current every day smoker cigarettes Packs smoked per day: 1.5 Quit status (tobacco): not considering quitting Second hand smoke exposure: No Alcohol intake: never Desire information about alcohol rehabilitation?: No Desire information about substance/drug rehabilitation?: No Current gender identity: Male Physical Exam Const: COMMON NORMALS: no acute distress, patient oriented x3 and healthy appearing HENMT: COMMON NORMALS: normocephalic and atraumatic HEAD & SCALP: normocephalic and atraumatic Eye: COMMON NORMALS: Equal, round and reactive pupils present and EOMs intact bilaterally PUPIL: Yes Equal, round and reactive pupils present Neck/C-Spine: COMMON NORMALS: full ROM and supple Chest: COMMONS NORMALS: normal inspection of the chest and normal palpation of entire chest wall Resp: COMMON NORMALS: normal respiratory effort, No retractions, No use of accessory muscles and clear to auscultation bilaterally AUSCULTATION: clear to auscultation bilaterally Cardio: COMMON NORMALS: regular rate, regular rhythm and No murmurs present (Cardio) RATE: regular rate RHYTHM: regular rhythm GI: COMMON NORMALS: Normal to inspection, nondistended, normoactive bowel sounds present, Soft to palpation, non-tender and no masses PALPATION: Yes Soft to palpation Extremity: COMMON NORMALS: normal to inspection and full ROM Neuro: COMMON NORMALS: patient oriented x3, moves all extremities and no focal motor deficits Psych: COMMON NORMALS: mental status grossly normal, Normal thought process present and cooperative THOUGHT PROCESS: Normal thought process present Skin: COMMON NORMALS: no rashes or lesions noted and no wounds GENERAL SKIN EXAM: no rashes or lesions noted Course Vital Signs: Vital signs: Vital Signs Temperature 97.8 F 01/03/23 19:47 Pulse Rate 66 01/03/23 21:55 Respiratory Rate 16 01/03/23 21:55 Blood Pressure 154/87 01/03/23 21:55 Pulse Oximetry 95 01/03/23 21:55 Oxygen Delivery Me thod 01/03/23 19:47 MDM - Male Medical Decision Making Patient presents here with hematuria he does have bladder wall thickening on CT it could be from a UTI no mass or anything else was shown at this time we will treat with antibiotics he is to follow-up with his PCP along with urologist inform if he is especially has continued hematuria he needs to see urologist and likely needs a cystoscope in the future he understands agrees to plan. Lab Data 01/03/23 21:26 01/03/23 21:26 Radiology Impressions Abdomen/Pelvis CT 01/03/23 21:59 IMPRESSION: Findings worrisome for severe cystitis. Other bladder pathology not excluded. Laboratory Results WBC 17.6 10^3/uL (4.0-10.0) H 01/03/23 21:26 RBC 5.59 10^6/uL (4.1-5.3) H 01/03/23 21: Hgb 17.1 g/dL (11.7-16.6) H 01/03/23 21: Hct 49.0 % (42.0-52.0) 01/03/23 21: MCV 87.7 fl (80-94) 01/03/23 21: MCH 30.6 pg (28.0-34.0) 01/03/23 21: MCHC 34.9 g/dL (30.0-36.0) 01/03/23 21: RDW 13.3 % (12.1-15.1) 01/03/23: Plt Count 260 10^3/cmm (130-400) 01/03/23 21: MPV 10.1 fL (7.4-10.4) 01/03/23 21: Neut % (Auto) 70.0 % 01/03/23 21: Lymph % (Auto) 18.6 % 01/03/23 21: [place] % (Auto) 7.5 % 01/03/23 21: Eos % (Auto) 2.5 % 01/03/23 21: Baso % (Auto) 0.9 % 01/03/23 21: Neut # (Auto) 12.32 10^3/uL (1.8-7.7) H 01/03/23 21: Lymph # (Auto) 3.3 10^3/uL (0.8-4.8) 01/03/23 21: [place] # (Auto) 1.3 10^3/uL (0.2-0.9) H 01/03/23 21: Eos # (Auto) 0.4 10^3/uL (0.0-0.8) 01/03/23 21: Baso # (Auto) 0.2 10^3/uL (0.0-0.1) H 01/03/23 21: Nucleated RBC % (auto) 0 % 01/03/23 21: Nucleated RBCs # 0.0 /100WBC 01/03/23 21: PT 13.40 SECONDS (12.1-14.9) 01/03/23 21: INR 1.00 (0.8-1.2) 01/03/23 21:26 Sodium 136 mmol/L (136-145) 01/03/23 21:26 Potassium 4.6 mmol/L (3.5-5.1) 01/03/23 21:26 Chloride 96 mmol/L (98-107) L 01/03/23 21:26 Carbon Dioxide 25 mmol/L (22-29) 01/03/23 21:26 Anion Gap 19.6 (5-19) H 01/03/23 21:26 BUN 12 mg/dL (8-23) 01/03/23 21:26 Creatinine 0.9 mg/dL (0.7-1.2) 01/03/23 21:26 GFR Calculation 85.2 mL/min (90-130) L 01/03/23 21:26 Glucose 202 mg/dL (65-115) H 01/03/23 21:26 Calculated Osmolality 288 mOsm/kg (285-295) 01/03/23 21: Calcium 9.9 mg/dL (8.5-10.5) 01/03/23 21:26 Total Bilirubin 0.8 mg/dL (0.15-1.2) 01/03/23 21:26 AST 17 U/L (0-40) 01/03/23 21:26 ALT 24 U/L (0-41) 01/03/23 21:26 Alkaline Phosphatase 67 U/L (40-130) 01/03/23 21:26 Total Protein 7.6 g/dL (6.6-8.7) 01/03/23 21:26 Albumin 4.6 g/dL (3.5-5.2) 01/03/23 21:26 Globulin 3.0 g/dL (1.3-4.6) 01/03/23 21:26 Lipase 25 U/L (13-60) 01/03/23 21:26 Urine Color Red (Yellow) 01/03/23 19:53 Urine Appearance Bloody (CLEAR) A 01/03/23 19:53 Urine pH 6 (5-7) 01/03/23 19:53 Ur Specific [place] 1.015 (1.005-1.030) 01/03/23 19:53 Urine Protein 3+ (Negative) H 01/03/23 19:53 Urine Glucose (UA) 4+ (Normal) H 01/03/23 19:53 Urine Ketones 1+ (Negative) H 01/03/23 19:53 Urine Blood 3+ (Negative) H 01/03/23 19:53 Urine Nitrate Negative (Negative) 01/03/23 19:53 Urine Bilirubin Neg (Negative) 01/03/23 19:53 Urine Urobilinogen Norm mg/dL (Negative) 01/03/23 19:53 Ur Leukocyte Esterase Trace (Negative) H 01/03/23 19:53 Urine RBC Too numerous to cnt /hpf (0-2) H 01/03/23 19:53 Urine WBC 55-80 /hpf (0-5) H 01/03/23 19:53 Ur Squamous Epith Cells 0-4 /hpf (0-5) H 01/03/23 19:53 Amorphous Sediment Not Reportable 01/03/23 19:53 Urine Bacteria Trace /hpf (NONE) 01/03/23 19:53 Discharge Plan Discharge Patient Disposition: Home Clinical Impression: Urinary tract infection, Hematuria Condition: Stable Prescriptions: New cephalexin 500 mg capsule 500 mg PO TID 7 Days Qty: 21 0RF No Action albuterol sulfate 90 mcg/actuation HFA aerosol inhaler 2 puff inhalation Q6H PRN (Reason: shortness of breath or wheezing) Qty: 8.5 0RF clopidogrel 75 mg tablet 75 mg PO QAM 100 Days Qty: 100 3RF Rx Instructions: Pharmacy requests all meds be filled for 100 days lisinopril 40 mg tablet 40 mg PO QAM 90 Days Qty: 90 2RF metformin 500 mg tablet,ER dash.retention 24 hr 500 mg PO BID 90 Days Qty: 180 2RF rosuvastatin 20 mg tablet 20 mg PO .QPM 90 Days Qty: 90 2RF metoprolol succinate 25 mg tablet extended release 24 hr 25 mg PO QAM 90 Days Qty: 90 2RF aspirin 81 mg tablet,delayed release (DR/EC) 81 mg PO QAM Qty: 30 11RF methimazole 5 mg tablet See Rx Instructions .ROUTE .COMPLEX Qty: 60 11RF Dose Instruction: Take 1 tablet by mouth twice daily Rx Instructions: Take 1 tablet by mouth twice daily Advil 200 mg Tablet 400 mg PO PRN Discharge Orders: Discharge ED (Routine); Ordered 01/03/23 Ordered By: Darian Friedman Referrals: Lalitha Jules MD [Primary Care Provider] - 1-3 days Discharge Diet: Advance as tolerated Discharge Activity: Resume usual activity Patient Instructions: Urinary Tract Infection in Women (ED), Hematuria (ED) Coding Level of Care Code ED 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
[2023-01-03 22:05] LABS: Alanine Aminotransferase 24 U/L (0-41); Albumin Level 4.6 g/dL (3.5-5.2); Alkaline Phosphatase 67 U/L (40-130); Anion Gap 19.6 (5-19); Aspartate Amino Transferase 17 U/L (0-40); Blood Urea Nitrogen 12 mg/dL (8-23); Calcium 9.9 mg/dL (8.5-10.5); Carbon Dioxide 25 mmol/L (22-29); Chloride 96 mmol/L (98-107); Glomerular Filtration Rate 85.2 mL/min (90-130); Glucose 202 mg/dL (65-115); Lipase 25 U/L (13-60); Osmolality Calculated 288 mOsm/kg (285-295); Potassium 4.6 mmol/L (3.5-5.1); Sodium 136 mmol/L (136-145); Total Bilirubin 0.8 mg/dL (0.15-1.2); Total Protein 7.6 g/dL (6.6-8.7)
[2023-01-03 23:10] VITALS: BP 165/81; PULSE 65; RESP 16; O2SAT 95
[2023-01-03] MEDS: cephALEXin 500 mg Capsule PO (23:13)
[2023-01-03 23:14] VITALS: BP 165/81; PULSE 65; RESP 16; TEMP 36.6; O2SAT 95
--- NOTE | 2023-01-04 10:12 | DCPLANNER ---
Addendum entered by Rosana Wilson 01/18/23 14:54: this appointment was cancelled Addendum entered by Rosana Wilson 01/05/23 08:53: Patient has a follow up appointment scheduled for Tuesday, January 17, 2023 at 12:[address] Foster at urology. Clinic will call patient with appointment information Original Note: assurance manager insurance had message to schedule a follow up appointment for patient with urology. assurance manager insurance sent patients information to the front office staff at urology. Patients information will be printed and reviewed. Clinic will call patient with appointment information.
== END 2023-01-03 23:15 | disposition home or self-care (01) ==
PROVIDERS: Emergency Provider Emergency Medicine; PCP Family Medicine
DX: N39.0 Urinary tract infection, site not specified (principal); R31.9 Hematuria, unspecified; Z79.02 Long term (current) use of antithrombotics/antiplatelets; Z79.84 Long term (current) use of oral hypoglycemic drugs; Z79.82 Long term (current) use of aspirin; I25.10 Atherosclerotic heart disease of native coronary artery without angina pectoris; E11.9 Type 2 diabetes mellitus without complications; I10 Essential (primary) hypertension; I25.2 Old myocardial infarction; E78.5 Hyperlipidemia, unspecified; F17.210 Nicotine dependence, cigarettes, uncomplicated
CPT/HCPCS: 74176; 80053; 81001; 83690; 85025; 85610; 87086; 99284

== ENCOUNTER → 2023-03-28 08:16 | Outpatient (BNVA) | payer MEDICARE, MEDICAID, SELFPAY | PROVIDERS: PCP Family Medicine; Visit Provider Internal Medicine | DX: E11.42 Type 2 diabetes mellitus with diabetic polyneuropathy (principal); E05.90 Thyrotoxicosis, unspecified without thyrotoxic crisis or storm; R74.01 Elevation of levels of liver transaminase levels; I10 Essential (primary) hypertension; Z79.4 Long term (current) use of insulin; Z79.84 Long term (current) use of oral hypoglycemic drugs; I25.10 Atherosclerotic heart disease of native coronary artery without angina pectoris | CPT/HCPCS: 36415; 80053; 80061; 82044; 83036; 84439; 84443; 84480; 99214 ==

== ENCOUNTER → 2023-05-31 14:23 | Outpatient (BNVA) | payer MEDICARE, MEDICAID, SELFPAY | PROVIDERS: PCP Family Medicine; Visit Provider Internal Medicine | DX: E05.90 Thyrotoxicosis, unspecified without thyrotoxic crisis or storm (principal); R74.01 Elevation of levels of liver transaminase levels; I10 Essential (primary) hypertension; E11.42 Type 2 diabetes mellitus with diabetic polyneuropathy; Z79.4 Long term (current) use of insulin; N52.9 Male erectile dysfunction, unspecified; R79.89 Other specified abnormal findings of blood chemistry; Z12.5 Encounter for screening for malignant neoplasm of prostate; Z79.84 Long term (current) use of oral hypoglycemic drugs | CPT/HCPCS: 99214 ==

== ENCOUNTER → 2023-06-15 11:24 | Outpatient (BNVA) | payer MEDICARE, MEDICAID, SELFPAY | PROVIDERS: PCP Family Medicine; Visit Provider Emergency Medicine | DX: R68.89 Other general symptoms and signs (principal) | CPT/HCPCS: 87400; 87426 ==

== ENCOUNTER 2023-06-20 21:31 | Emergency (ER) | payer MEDICARE, MEDICAID, SELFPAY ==
[2023-06-20 21:36] VITALS: BP 166/77; PULSE 71; RESP 18; TEMP 36.4; O2SAT 95; BMI 31.1
--- NOTE | 2023-06-20 23:45 | ECG_ITS ---
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 Measurements Intervals [place] Rate: 67 P: 61 ME: 189 QRS: 46 QRSD: 85 T: 210 QT: 408 QTc: 432 Interpretive Statements SINUS RHYTHM ST DEVIATION AND MARKED T-WAVE ABNORMALITY, CONSIDER ANTEROLATERAL ISCHEMIA [-0.5+ mV T-WAVE IN I/aVL/V3-V6] ST DEVIATION AND MODERATE T-WAVE ABNORMALITY, CONSIDER INFERIOR ISCHEMIA [-0.1+ mV T-WAVE IN II/aVF] Compared to ECG 05/10/2021 21:00:18 No significant changes Electronically Signed On 06-21-2023 9:47:00 CDT by Luis Felipe Taylor M.D. [email or web address] [email or web address] [employer]/store/OM/[id number]
--- NOTE | 2023-06-21 00:02 | ED_ITS ---
HPI - Syncope General: Chief Complaint: Syncope Stated Complaint: fall/ passing out Time Seen by Provider: 06/20/23 23:44 History of Present Illness: Patient presents to the ER with a syncopal episode. Patient states he is just taking his medicines while sitting at the table Oh he just passed out. Patient denies hitting his head patient denies any pain patient denies knowing that he was about to happen until it just happened. Patient states he has a cardiac history with couple stents back in 2017. Patient's family was concerned wanted him to come here and get checked out crystal mcclure at this time has no complaints or concerns at all. Review of Systems General: Reports: 10 or more systems reviewed and unremarkable except in HPI and below PFSH ED PFSH: Medical History CAD (coronary artery disease) History of stent Diabetic neuropathy Essential hypertension History of myocardial infarction Hyperlipidemia Type 2 diabetes mellitus Surgical History Stented coronary artery Family History Mother CAD (coronary artery disease) Sister Cancer Social History Smoking and tobacco status: current every day smoker cigarettes Packs smoked per day: 1.5 Quit status (tobacco): not considering quitting Second hand smoke exposure: No Alcohol intake: never Desire information about alcohol rehabilitation?: No Substance/Drug Use: never Desire information about substance/drug rehabilitation?: No Current gender identity: Male Physical Exam Const: COMMON NORMALS: no acute distress, average body habitus, patient oriented x3, no limitations, healthy appearing, alert and well nourished HENMT: COMMON NORMALS: normocephalic, atraumatic, hearing grossly normal bilaterally, external ears normal, Normal external nose present and moist oral mucous membranes HEAD & SCALP: normocephalic and atraumatic NOSE: Normal external nose present EXTERNAL EAR: Yes external ears normal Eye: COMMON NORMALS: Equal, round and reactive pupils present and EOMs intact bilaterally PUPIL: Yes Equal, round and reactive pupils present Neck/C-Spine: COMMON NORMALS: full ROM, no lymphadenopathy, supple, no meningeal signs, no JVD and Thyroid normal THYROID: Thyroid normal Resp: COMMON NORMALS: normal respiratory effort, No retractions, No use of accessory muscles and clear to auscultation bilaterally AUSCULTATION: clear to auscultation bilaterally Cardio: COMMON NORMALS: no JVD, regular rate, regular rhythm, S1 normal heart sound present, S2 normal heart sound present, No gallops present (Cardio), No clicks present (Cardio), No murmurs present (Cardio) and No rub (Cardio) RATE: regular rate RHYTHM: regular rhythm HEART SOUNDS: S1 normal heart sound present and S2 normal heart sound present GI: COMMON NORMALS: Normal to inspection, nondistended, normoactive bowel sounds present, Soft to palpation, non-tender, No hepatosplenomegaly present and no masses PALPATION: Yes Soft to palpation and Yes No hepatosplenomegaly present : COMMON NORMALS: Yes no CVA tenderness BLADDER/KIDNEY EXAM: Yes no CVA tenderness Back/Pelvis: COMMON NORMALS: no CVA tenderness Neuro: COMMON NORMALS: patient oriented x3 SENSORIUM/ORIENTATION: Yes alert MENINGEAL SIGNS: Yes no meningeal signs Course Vital Signs: Vital signs: Vital Signs Temperature 97.6 F 06/20/23 21:36 Pulse Rate 64 06/21/23 00:05 Respiratory Rate 33 H 06/21/23 00:05 Blood Pressure 163/79 06/21/23 00:05 Pulse Oximetry 90 06/21/23 00:05 Oxygen Delivery Me thod Room Air 06/21/23 00:05 MDM - Syncope Medical Decision Making Patient presents to the ER with complaints of passing on his table. Patient does have a cardiac history. Patient did not feel this coming on. Patient was worked up in a normal fashion including serial EKGs and troponins and lab work. All of which was essentially benign for acute cardiac findings. Patient be discharged home with diagnosis syncope patient is to follow-up with his PCP in the next 7 days or sooner as needed. Differential Diagnosis Unlikely syncope due to orthostatic hypotension, vasovagal syncope, complete atrioventricular block, subarachnoid hemorrhage, pulmonary embolism or dehydration Medical Records I reviewed the patient's medical records. Lab Data I reviewed the patient's lab results. 06/20/23 23:59 06/20/23 23:59 Laboratory Results WBC 11.75 10^3/uL (3.29-11.43) H 06/20/23 23:59 RBC 5.16 10^6/uL (3.85-5.65) 06/20/23 23:59 Hgb 15.90 g/dL (11.27-16.99) 06/20/23 23:59 Hct 45.0 % (37-53) 06/20/23 23:59 MCV 87.2 fl (82-101) 06/20/23 23:59 MCH 30.8 pg (27-33) 06/20/23 23: MCHC 35.3 g/dL (30-55) 06/20/23 23:59 RDW 12.7 % (12.1-15.1) 06/20/23 23:59 Plt Count 235 10^3/cmm (157-399) 06/20/23 23: MPV 10.2 fL (7.4-10.4) 06/20/23 23:59 Neut % (Auto) 59.6 % 06/20/23 23:59 Lymph % (Auto) 26.7 % 06/20/23 23:59 [place] % (Auto) 8.9 % 06/20/23 23:59 Eos % (Auto) 3.4 % 06/20/23 23:59 Baso % (Auto) 0.9 % 06/20/23 23:59 Neut # (Auto) 6.99 10^3/uL (1.8-7.7) 06/20/23 23:59 Lymph # (Auto) 3.1 10^3/uL (0.8-4.8) 06/20/23 23:59 [place] # (Auto) 1.1 10^3/uL (0.2-0.9) H 06/20/23 23:59 Eos # (Auto) 0.4 10^3/uL (0.0-0.8) 06/20/23 23:59 Baso # (Auto) 0.1 10^3/uL (0.0-0.1) 06/20/23 23:59 Nucleated RBC % (auto) 0 % 06/20/23 23:59 Nucleated RBCs # 0.0 /100WBC 06/20/23 23:59 Sodium 136 mmol/L (136-145) 06/20/23 23:59 Potassium 4.2 mmol/L (3.5-5.1) 06/20/23 23:59 Chloride 101 mmol/L (98-107) 06/20/23 23:59 Carbon Dioxide 24 mmol/L (22-29) 06/20/23 23:59 Anion Gap 15.2 (5-19) 06/20/23 23:59 BUN 15 mg/dL (8-23) 06/20/23 23:59 Creatinine 0.9 mg/dL (0.7-1.2) 06/20/23 23:59 GFR Calculation 85.0 mL/min (90-130) L 06/20/23 23:59 Glucose 171 mg/dL (65-115) H 06/20/23 23:59 Calculated Osmolality 287 mOsm/kg (285-295) 06/20/23 23:59 Calcium 9.9 mg/dL (8.5-10.5) 06/20/23 23:59 Total Bilirubin 0.7 mg/dL (0.15-1.2) 06/20/23 23:59 AST 25 U/L (0-40) 06/20/23 23:59 ALT 36 U/L (0-41) 06/20/23 23:59 Alkaline Phosphatase 67 U/L (40-130) 06/20/23 23:59 Troponin T Baseline 14 ng/L (0-15) 06/21/23 00:00 Troponin T 120 Minute 14.33 ng/L (0-15) 06/21/23 01:37 Total Protein 7.1 g/dL (6.6-8.7) 06/20/23 23:59 Albumin 4.9 g/dL (3.5-5.2) 06/20/23 23:59 Globulin 2.2 g/dL (1.3-4.6) 06/20/23 23:59 Urine Color Yellow (Yellow) 06/21/23 01:36 Urine Appearance Clear (CLEAR) 06/21/23 01:36 Urine pH 7 (5-7) 06/21/23 01:36 Ur Specific [place] 1.010 (1.005-1.030) 06/21/23 01:36 Urine Protein Neg (Negative) 06/21/23 01:36 Urine Glucose (UA) 1+ (Normal) H 06/21/23 01:36 Urine Ketones Negative (Negative) 06/21/23 01:36 Urine Blood Neg (Negative) 06/21/23 01:36 Urine Nitrate Negative (Negative) 06/21/23 01:36 Urine Bilirubin Neg (Negative) 06/21/23 01:36 Urine Urobilinogen 1 mg/dL (Negative) H 06/21/23 01:36 Ur Leukocyte Esterase Negative (Negative) 06/21/23 01:36 Urine Opiates Screen Negative ng/mL (Negative) 06/21/23 01:36 Ur Barbiturates Screen Negative ng/mL (Negative) 06/21/23 01:36 Ur Phencyclidine Scrn Negative ng/mL (Negative) 06/21/23 01:36 Ur Amphetamines Screen Negative ng/mL (Negative) 06/21/23 01:36 U Benzodiazepines Scrn Negative ng/mL (Negative) 06/21/23 01:36 Urine Cocaine Screen Negative ng/mL (Negative) 06/21/23 01:36 U Marijuana (THC) Screen Negative ng/mL (Negative) 06/21/23 01:36 EKG Data EKG 1: I personally reviewed and interpreted this EKG as follows: EKG interpretation date: 06/21/23 EKG interpretation time: 23:45 Prior EKG tracings: not available for review Interpretation: EKG showed ventricular rate 67 beats minute, OR interval 189, QRS duration 85, QTc of 424, sinus rhythm, negative T waves in 1 aVL V3 4 5 and 6, 2 and aVF, EKG 2: I personally reviewed and interpreted this EKG as follows: EKG interpretation date: 06/21/23 EKG interpretation time: 01:49 Prior EKG tracings: available for review Interpretation: EKG showed ventricular rate 61 beats minute, OR interval 186, QRS duration 97, QTc of 446, sinus rhythm, ST deviation marked T wave abnormalities negative T waves in 1 aVL V3 V4 V5 V6 2 and aVF, Discharge Plan Discharge Patient Disposition: Home Clinical Impression: Syncope Qualifiers: Syncope type: unspecified Qualified Code(s): R55 - Syncope and collapse Condition: Stable Prescriptions: No Action albuterol sulfate 90 mcg/actuation HFA aerosol inhaler 2 puff inhalation Q6H PRN (Reason: shortness of breath or wheezing) Qty: 8.5 0RF metformin 500 mg tablet,ER dash.retention 24 hr 1,000 mg PO BID 90 Days Qty: 360 2RF clopidogrel 75 mg tablet 75 mg PO QAM 100 Days Qty: 100 3RF Rx Instructions: Pharmacy requests all meds be filled for 100 days aspirin 81 mg tablet,delayed release (DR/EC) 81 mg PO QAM Qty: 30 11RF rosuvastatin 20 mg tablet 20 mg PO .QPM 90 Days Qty: 90 2RF metoprolol succinate 25 mg tablet extended release 24 hr 25 mg PO QAM 90 Days Qty: 90 2RF lisinopril 40 mg tablet 40 mg PO QAM 90 Days Qty: 90 2RF methimazole 5 mg tablet See Rx Instructions .ROUTE .COMPLEX Qty: 30 11RF Dose Instruction: Take 1 tablet by mouth every day Rx Instructions: Take 1 tablet by mouth every day [id number] [Bromfed DM] 2-30-10 mg/5 mL syrup 5 ml PO Q6H PRN (Reason: cold symptoms) Qty: 118 0RF Advil 200 mg Tablet 400 mg PO PRN Discharge Orders: Discharge ED (Routine); Ordered 06/21/23 Ordered By: Kamlesh Mills Referrals: Lalitha Jules MD [Primary Care Provider] - 1 week Patient Instructions: Syncope (DC) Activity Restrictions/Additional Instructions: Please follow-up with your family practice doctor for further evaluation and treatment. Coding Level of Care Code ED Compressed Gases Tester for Andi Solares
[2023-06-21 00:05] VITALS: BP 163/79; PULSE 64; RESP 33; O2SAT 90
--- NOTE | 2023-06-21 00:05 | ECG_ITS ---
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 Measurements Intervals [place] Rate: 67 P: 76 [place]: 207 QRS: 56 QRSD: 84 T: 202 QT: 405 QTc: 430 Interpretive Statements SINUS RHYTHM ST DEVIATION AND MODERATE T-WAVE ABNORMALITY, CONSIDER ANTEROLATERAL ISCHEMIA [-0.1+ mV T-WAVE IN V3-V6] ST DEVIATION AND MODERATE T-WAVE ABNORMALITY, CONSIDER INFERIOR ISCHEMIA [-0.1+ mV T-WAVE IN II/aVF] Compared to ECG 05/10/2021 21:00:18 No significant changes Electronically Signed On 06-21-2023 9:47:10 CDT by Luis Felipe Taylor M.D. [email or web address]/[id number] f
[2023-06-21 00:09] LABS: Basophils # 0.1 10^3/uL (0.0-0.1); Basophils % 0.9 %; Eosinophils # 0.4 10^3/uL (0.0-0.8); Eosinophils % 3.4 %; Lymphocytes # 3.1 10^3/uL (0.8-4.8); Lymphocytes % 26.7 %; Mean Corpuscular HGB Conc 35.3 g/dL (30-55); Mean Corpuscular Hemoglobin 30.8 pg (27-33); Mean Corpuscular Volume 87.2 fl (82-101); Mean Platelet Volume 10.2 fL (7.4-10.4); Monocytes # 1.1 10^3/uL (0.2-0.9); Monocytes % 8.9 %; Neutrophils # 6.99 10^3/uL (1.8-7.7); Neutrophils % 59.6 %; Nucleated Red Blood Cells % 0 %; Platelet Count 235 10^3/cmm (157-399); Red Blood Count 5.16 10^6/uL (3.85-5.65); Red Cell Distribution Width 12.7 % (12.1-15.1); White Blood Count 11.75 10^3/uL (3.29-11.43)
[2023-06-21 00:28] LABS: Troponin(5th) Baseline 14 ng/L (0-15)
[2023-06-21 00:29] LABS: Alanine Aminotransferase 36 U/L (0-41); Albumin Level 4.9 g/dL (3.5-5.2); Alkaline Phosphatase 67 U/L (40-130); Anion Gap 15.2 (5-19); Aspartate Amino Transferase 25 U/L (0-40); Blood Urea Nitrogen 15 mg/dL (8-23); Calcium 9.9 mg/dL (8.5-10.5); Carbon Dioxide 24 mmol/L (22-29); Chloride 101 mmol/L (98-107); Globulin 2.2 g/dL (1.3-4.6); Glucose 171 mg/dL (65-115); Osmolality Calculated 287 mOsm/kg (285-295); Potassium 4.2 mmol/L (3.5-5.1); Sodium 136 mmol/L (136-145); Total Bilirubin 0.7 mg/dL (0.15-1.2); Total Protein 7.1 g/dL (6.6-8.7)
[2023-06-21 01:30] VITALS: BP 152/92; PULSE 71
[2023-06-21 01:49] LABS: Add Urine Microscopic? NO; Charge for UA Resulting for Rev
--- NOTE | 2023-06-21 01:49 | ECG_ITS ---
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 Measurements Intervals [place] Rate: 61 P: 34 NE: 186 QRS: 49 QRSD: 97 T: 219 QT: 442 QTc: 448 Interpretive Statements SINUS RHYTHM ST DEVIATION AND MARKED T-WAVE ABNORMALITY, CONSIDER ANTEROLATERAL ISCHEMIA [-0.5+ mV T-WAVE IN I/aVL/V3-V6] ST DEVIATION AND MODERATE T-WAVE ABNORMALITY, CONSIDER INFERIOR ISCHEMIA [-0.1+ mV T-WAVE IN II/aVF] Compared to ECG 06/20/2023 23:45:07 No significant changes Electronically Signed On 06-21-2023 9:48:40 CDT by Luis Felipe Taylor M.D. [email or web address]/store/[id number]
[2023-06-21 02:00] LABS: Bilirubin Urine Neg (Negative); Blood Urine Neg (Negative); Glucose Urine UA 1+ (Normal); Ketones Urine Negative (Negative); Leukocyte Esterase Urine Negative (Negative); Nitrate Urine Negative (Negative); Protein Urine Neg (Negative); Urine Appearance Clear (CLEAR); Urine Color Yellow (Yellow); Urobilinogen Urine 1 mg/dL (Negative); pH Urine 7 (5-7)
[2023-06-21 02:10] LABS: Amphetamines Screen Urine Negative (Negative); Barbiturates Screen Urine Negative (Negative); Benzodiazepines Screen Urine Negative (Negative); Cocaine Screen Urine Negative (Negative); Opiate Screen Urine Negative (Negative); PCP Screen Urine Negative (Negative); THC Screen Urine Negative (Negative)
[2023-06-21 02:20] LABS: Troponin 5 2HR 14.33 ng/L (0-15); Troponin 5 2HR Delta 0.33 ABS# (0-10)
[2023-06-21 02:30] VITALS: BP 156/98; PULSE 86; O2SAT 100
[2023-06-21 02:45] VITALS: BP 144/73
== END 2023-06-21 02:45 | disposition home or self-care (01) ==
PROVIDERS: Emergency Provider Emergency Medicine; PCP Family Medicine
DX: R55 Syncope and collapse (principal); Z79.02 Long term (current) use of antithrombotics/antiplatelets; Z79.82 Long term (current) use of aspirin; F17.210 Nicotine dependence, cigarettes, uncomplicated; I25.10 Atherosclerotic heart disease of native coronary artery without angina pectoris; E11.9 Type 2 diabetes mellitus without complications; I10 Essential (primary) hypertension; I25.2 Old myocardial infarction; E78.5 Hyperlipidemia, unspecified
CPT/HCPCS: 80053; 80306; 81003; 84484; 85025; 93005; 99284

== ENCOUNTER → 2023-11-10 09:01 | Outpatient (BNVA) | payer MEDICARE, MEDICAID, SELFPAY | PROVIDERS: PCP Family Medicine; Visit Provider Family Medicine | DX: E05.90 Thyrotoxicosis, unspecified without thyrotoxic crisis or storm (principal); R74.01 Elevation of levels of liver transaminase levels; I10 Essential (primary) hypertension; E11.9 Type 2 diabetes mellitus without complications; N52.9 Male erectile dysfunction, unspecified; E11.42 Type 2 diabetes mellitus with diabetic polyneuropathy; Z79.4 Long term (current) use of insulin | CPT/HCPCS: 80053; 80061; 82043; 83036; 84439; 84443; 84480 ==

== ENCOUNTER → 2023-11-14 10:00 | Outpatient (BNVA) | payer MEDICARE, MEDICAID, SELFPAY | PROVIDERS: PCP Family Medicine; Visit Provider Internal Medicine | DX: E05.90 Thyrotoxicosis, unspecified without thyrotoxic crisis or storm (principal); N52.9 Male erectile dysfunction, unspecified; E11.42 Type 2 diabetes mellitus with diabetic polyneuropathy; Z79.4 Long term (current) use of insulin; R74.01 Elevation of levels of liver transaminase levels; I10 Essential (primary) hypertension; Z12.5 Encounter for screening for malignant neoplasm of prostate; Z79.84 Long term (current) use of oral hypoglycemic drugs | CPT/HCPCS: 82044; 99214 ==

== ENCOUNTER → 2023-11-18 10:26 | Outpatient (BNVA) | payer MEDICARE, MEDICAID, SELFPAY | PROVIDERS: PCP Family Medicine; Visit Provider Emergency Medicine | DX: R55 Syncope and collapse (principal) | CPT/HCPCS: 71046; 93005 ==

== ENCOUNTER 2023-11-18 11:39 | Emergency (ER) | payer MEDICARE, MEDICAID, SELFPAY ==
[2023-11-18 11:51] VITALS: BP 159/74; PULSE 64; RESP 16; TEMP 36.3; O2SAT 95
--- NOTE | 2023-11-18 11:53 | ECG_ITS ---
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 Measurements Intervals [place] Rate: 61 P: 222 PA: 80 QRS: 75 QRSD: 83 T: 204 QT: 428 QTc: 431 Interpretive Statements SINUS RHYTHM ST DEVIATION AND MARKED T-WAVE ABNORMALITY, CONSIDER ANTEROLATERAL ISCHEMIA [-0.5+ mV T-WAVE IN I/aVL/V3-V6] ST DEVIATION AND MODERATE T-WAVE ABNORMALITY, CONSIDER INFERIOR ISCHEMIA [-0.1+ mV T-WAVE IN II/aVF] Compared to ECG 06/21/2023 01:49:43 T-wave abnormality still present Possible ischemia still present Electronically Signed On 11-19-2023 5:57:57 ASSEMBLY LINE [employer]RAZER by Luis Felipe Taylor M.D. [id number]
--- NOTE | 2023-11-18 11:55 | ED_ITS ---
HPI - Chest Pain 2 General: Chief Complaint: Chest Pain Stated Complaint: dr pawel, passing out/ abnormal labs Time Seen by Provider: 11/18/23 11:54 History of Present Illness: Patient presents to the emergency room with syncopal episodes. He has had multiple recent syncopal episodes. He has a history of coronary artery disease with stents. He is on Plavix. He has had some increased cough recently. No chest pain. No altered mental status. He did not fall when he passed out. He got to see his primary care physician who did an EKG and was concerned that it was abnormal. Review of Systems 2 Narrative: Constitutional symptoms: Negative except as documented in HPI. Skin symptoms: Negative except as documented in HPI. Eye symptoms: Negative except as documented in HPI. ENMT symptoms: Negative except as documented in HPI. Respiratory symptoms: Negative except as documented in HPI. Cardiovascular symptoms: Negative except as documented in HPI. Gastrointestinal symptoms: Negative except as documented in HPI. Genitourinary symptoms: Negative except as documented in HPI. Musculoskeletal symptoms: Negative except as documented in HPI. Neurologic symptoms: Negative except as documented in HPI. Psychiatric symptoms: Negative except as documented in HPI. Endocrine symptoms: Negative except as documented in HPI. PFSH ED 2 PFSH: Medical History (Updated 11/18/23 @ 13:55 by Lisa Us MD) Abnormal EKG History of myocardial infarction Diabetic neuropathy CAD (coronary artery disease) History of stent Essential hypertension Hyperlipidemia Type 2 diabetes mellitus Surgical History Stented coronary artery Family History Mother CAD (coronary artery disease) Sister Cancer Social History Smoking and tobacco/nicotine status: current every day tobacco/nicotine user cigarettes Packs smoked per day: 1.5 Quit status (tobacco/nicotine): not considering quitting Second hand smoke exposure: No Alcohol intake: never Substance/Drug Use: never Current gender identity: Male Physical Exam 2 Narrative: EXAM NARRATIVE: General: Alert, no acute distress. Skin: Warm, dry. Head: Normocephalic, atraumatic. Neck: Supple, trachea midline. Eye: Extraocular movements are intact. Ears, nose, mouth and throat: mucosa moist. Cardiovascular: Regular, Normal peripheral perfusion. Respiratory: Lungs are clear to auscultation, respirations are non-labored, breath sounds are equal, Symmetrical chest wall expansion. Gastrointestinal: Soft, Nontender, Non distended, Normal bowel sounds. Musculoskeletal: Normal ROM, no deformity. Neurological: Alert and oriented to person, place, time, and situation, No focal neurological deficit observed. Psychiatric: Cooperative, appropriate mood & affect. Course 2 Vital Signs: Vital signs: Vital Signs Temperature 97.4 F L 11/18/23 11:51 Pulse Rate 62 11/18/23 12:52 Respiratory Rate 16 11/18/23 12:52 Blood Pressure 156/75 11/18/23 12:52 Pulse Oximetry 91 11/18/23 12:52 Oxygen Delivery Me thod Room Air 11/18/23 12:52 MDM - Chest Pain Medical Decision Making Medical decision making: Differential diagnosis including but not limited to: Dysrhythmias, hypotension, acute coronary syndrome, infection such as pneumonia, flu or COVID. Workup based on differential diagnosis: See orders. EKG: Time 11:53 AM rate 61. Normal sinus rhythm, diffuse ST depression. Particularly in the anterior lateral leads. This was present on an EKG done in June 2023. Unchanged. No ectopy, normal UT & QRS intervals, This was reviewed and interpreted by myself the ER physician. Chest x-ray: No acute process. No pneumothorax. No infiltrate. No cardiomegaly. This was reviewed and interpreted by myself the ER physician Lab Data 11/18/23 12:21 11/18/23 12:21 Laboratory Results WBC 9.03 10^3/uL (3.29-11.43) 11/18/23 12:21 RBC 5.00 10^6/uL (3.85-5.65) 11/18/23 12:21 Hgb 15.70 g/dL (11.27-16.99) 11/18/23 12:21 Hct 44.6 % (37-53) 11/18/23 12:21 MCV 89.2 fl (82-101) 11/18/23 12:21 MCH 31.4 pg (27-33) 11/18/23 12:21 MCHC 35.2 g/dL (30-55) 11/18/23 12:21 RDW 12.6 % (12.1-15.1) 11/18/23 12:21 Plt Count 181 10^3/cmm (157-399) 11/18/23 12:21 MPV 10.2 fL (7.4-10.4) 11/18/23 12:21 Neut % (Auto) 58.3 % 11/18/23 12:21 Lymph % (Auto) 30.0 % 11/18/23 12:21 [place] % (Auto) 7.6 % 11/18/23 12:21 Eos % (Auto) 2.7 % 11/18/23 12:21 Baso % (Auto) 0.8 % 11/18/23 12:21 Neut # (Auto) 5.27 10^3/uL (1.8-7.7) 11/18/23 12:21 Lymph # (Auto) 2.7 10^3/uL (0.8-4.8) 11/18/23 12:21 [place] # (Auto) 0.7 10^3/uL (0.2-0.9) 11/18/23 12:21 Eos # (Auto) 0.2 10^3/uL (0.0-0.8) 11/18/23 12:21 Baso # (Auto) 0.1 10^3/uL (0.0-0.1) 11/18/23 12:21 Nucleated RBC % (auto) 0 % 11/18/23 12:21 Nucleated RBCs # 0.0 /100WBC 11/18/23 12:21 Sodium 135 mmol/L (136-145) L 11/18/23 12:21 Potassium 4.1 mmol/L (3.5-5.1) 11/18/23 12:21 Chloride 99 mmol/L (98-107) 11/18/23 12:21 Carbon Dioxide 23 mmol/L (22-29) 11/18/23 12:21 Anion Gap 17.1 (5-19) 11/18/23 12:21 BUN 13 mg/dL (8-23) 11/18/23 12:21 Creatinine 0.9 mg/dL (0.7-1.2) 11/18/23 12:21 GFR Calculation 85.0 mL/min (90-130) L 11/18/23 12:21 Glucose 194 mg/dL (65-115) H 11/18/23 12:21 Calculated Osmolality 285 mOsm/kg (285-295) 11/18/23 12:21 Calcium 9.2 mg/dL (8.5-10.5) 11/18/23 12:21 Total Bilirubin 0.5 mg/dL (0.15-1.2) 11/18/23 12:21 AST 22 U/L (0-40) 11/18/23 12:21 ALT 31 U/L (0-41) 11/18/23 12:21 Alkaline Phosphatase 55 U/L (40-130) 11/18/23 12:21 Troponin T Baseline 14 ng/L (0-15) 11/18/23 12:21 C-Reactive Protein 3.0 mg/L (0.0-4.9) 11/18/23 12:21 NT-Pro-B Natriuret Pep 242 pg/mL (0-125) H 11/18/23 12:21 Total Protein 6.7 g/dL (6.6-8.7) 11/18/23 12:21 Albumin 4.5 g/dL (3.5-5.2) 11/18/23 12:21 Globulin 2.2 g/dL (1.3-4.6) 11/18/23 12:21 Influenza Type A Ag negative (Negative) 11/18/23 12:32 Influenza Type B Ag negative (Negative) 11/18/23 12:32 Lab review is unremarkable. Troponin is negative. CRP is negative. Influenza is negative. COVID was pending. His chest x-ray is clear. All radiology interpretation(s) finalized by discharge Other Data - Patient became impatient and was wanting to leave. His second troponin is pending. COVID is. Pending. - Discharged home - Discussed findings and plan with patient. Answered any questions. - All laboratory values were reviewed and interpreted personally by myself, the ER physician - All imaging was reviewed and interpreted personally by myself, the ER physician. - Evaluation and treatment of this problem were appropriate in the emergency setting Discharge Plan Discharge Patient Disposition: Home Clinical Impression: Syncope Condition: Stable Prescriptions: No Action lisinopril 40 mg tablet 40 mg PO QAM 90 Days Qty: 90 2RF clopidogrel 75 mg tablet 75 mg PO QAM 100 Days Qty: 100 2RF Rx Instructions: Pharmacy requests all meds be filled for 100 days metoprolol succinate 50 mg tablet extended release 24 hr 50 mg PO QAM 90 Days Qty: 90 2RF ibuprofen [Advil] 200 mg Tablet 400 mg PO Q6H PRN (Reason: Pain) methimazole 5 mg tablet 5 mg PO QAM metformin 500 mg tablet extended release 24 hr See Rx Instructions .ROUTE .COMPLEX Rx Instructions: 1000mg po qam and 500mg po at bedtime rosuvastatin 20 mg tablet 20 mg PO QAM aspirin 81 mg tablet,delayed release (DR/EC) 81 mg PO BEDTIME Discharge Orders: Discharge ED (Routine); Ordered 11/18/23 Ordered By: Lisa Us Referrals: Lalitha Jules MD [Primary Care Provider] - 4-7 days (You have been screened and evaluated and felt safe for discharge. Health conditions do change or evolve sometimes and as such it is important that you follow up with your Primary Doctor to be re checked, 3-5 days is a general good time frame for follow up. You are always welcome to return to the ED for re assessment if your symptoms are worsening or you have new concerns) Discharge Diet: Usual diet Discharge Activity: Increase activity as tolerated Patient Instructions: Opioid Safety, Pain Management, Syncope (ED) Coding Level of Care Code ED Electrician Substation Supervisor for Andi Solares
[2023-11-18 12:35] LABS: Basophils # 0.1 10^3/uL (0.0-0.1); Basophils % 0.8 %; Eosinophils # 0.2 10^3/uL (0.0-0.8); Eosinophils % 2.7 %; Hematocrit 44.6 % (37-53); Lymphocytes # 2.7 10^3/uL (0.8-4.8); Mean Corpuscular HGB Conc 35.2 g/dL (30-55); Mean Corpuscular Hemoglobin 31.4 pg (27-33); Mean Corpuscular Volume 89.2 fl (82-101); Mean Platelet Volume 10.2 fL (7.4-10.4); Monocytes # 0.7 10^3/uL (0.2-0.9); Monocytes % 7.6 %; Neutrophils # 5.27 10^3/uL (1.8-7.7); Neutrophils % 58.3 %; Nucleated Red Blood Cells % 0 %; Platelet Count 181 10^3/cmm (157-399); Red Cell Distribution Width 12.6 % (12.1-15.1); White Blood Count 9.03 10^3/uL (3.29-11.43)
[2023-11-18 12:41] VITALS: BP 151/74; BP 156/75; PULSE 61; PULSE 66; PULSE 68
[2023-11-18 12:52] VITALS: BP 156/75; PULSE 62; RESP 16; O2SAT 91
[2023-11-18 12:56] LABS: Influenza A by IFA negative (Negative); Influenza B by IFA negative (Negative)
[2023-11-18 12:58] LABS: Troponin(5th) Baseline 14 ng/L (0-15)
[2023-11-18 13:10] LABS: Alanine Aminotransferase 31 U/L (0-41); Albumin Level 4.5 g/dL (3.5-5.2); Alkaline Phosphatase 55 U/L (40-130); Anion Gap 17.1 (5-19); Aspartate Amino Transferase 22 U/L (0-40); Blood Urea Nitrogen 13 mg/dL (8-23); Calcium 9.2 mg/dL (8.5-10.5); Carbon Dioxide 23 mmol/L (22-29); Chloride 99 mmol/L (98-107); Globulin 2.2 g/dL (1.3-4.6); Glucose 194 mg/dL (65-115); NT Pro B Type Natriuretic Pept 242 pg/mL (0-125); Osmolality Calculated 285 mOsm/kg (285-295); Potassium 4.1 mmol/L (3.5-5.1); Sodium 135 mmol/L (136-145); Total Bilirubin 0.5 mg/dL (0.15-1.2); Total Protein 6.7 g/dL (6.6-8.7)
[2023-11-18 14:02] VITALS: BP 156/75; PULSE 62; RESP 16; TEMP 36.3; O2SAT 91
[2023-11-18 14:19] LABS: Adenovirus Not Detected (NOT DETECT); Chlamydia Pneumoniae Not Detected (NOT DETECT); Coronavirus 229E,HKU1,NL63,OC4 Not Detected (NOT DETECT); Human Metapneumovirus Not Detected (NOT DETECT); Human Rhinovirus/Enterovirus Not Detected (NOT DETECT); Influenza A Not Detected (NOT DETECT); Influenza A H1 Not Detected (NOT DETECT); Influenza A H1-2009 Not Detected (NOT DETECT); Influenza A H3 Not Detected (NOT DETECT); Influenza B Not Detected (NOT DETECT); Mycoplasma Pneumoniae Not Detected (NOT DETECT); Parainfluenza Virus Type 1 Not Detected (NOT DETECT); Parainfluenza Virus Type 2 Not Detected (NOT DETECT); Parainfluenza Virus Type 3 Not Detected (NOT DETECT); Parainfluenza Virus Type 4 Not Detected (NOT DETECT); Respiratory Syncytial Virus A Not Detected (NOT DETECT); Respiratory Syncytial Virus B Not Detected (NOT DETECT); SARS-COV-2 Not Detected (NOT DETECT)
== END 2023-11-18 14:02 | disposition home or self-care (01) ==
PROVIDERS: Emergency Provider Emergency Medicine; PCP Family Medicine
DX: R55 Syncope and collapse (principal); Z79.02 Long term (current) use of antithrombotics/antiplatelets; Z79.82 Long term (current) use of aspirin; Z79.84 Long term (current) use of oral hypoglycemic drugs; E11.40 Type 2 diabetes mellitus with diabetic neuropathy, unspecified; I25.10 Atherosclerotic heart disease of native coronary artery without angina pectoris; I10 Essential (primary) hypertension; E78.5 Hyperlipidemia, unspecified; F17.210 Nicotine dependence, cigarettes, uncomplicated; Z11.52 Encounter for screening for COVID-19
CPT/HCPCS: 36415; 71046; 80053; 83880; 84484; 85025; 86140; 87635; 87804; 93005; 99285

== ENCOUNTER → 2024-02-13 08:27 | Outpatient (BNVA) | payer MEDICARE, MEDICAID, SELFPAY | PROVIDERS: PCP Family Medicine; Referring Provider Internal Medicine; Visit Provider Internal Medicine | DX: E05.90 Thyrotoxicosis, unspecified without thyrotoxic crisis or storm (principal); N52.9 Male erectile dysfunction, unspecified; E11.42 Type 2 diabetes mellitus with diabetic polyneuropathy; Z79.4 Long term (current) use of insulin | CPT/HCPCS: 80053; 80061; 82043; 83001; 83002; 83036; 84146; 84403; 84439; 84443; 84480; 85025; G0103 ==

== ENCOUNTER → 2024-02-16 10:05 | Outpatient (BNVA) | payer MEDICARE, MEDICAID, SELFPAY | PROVIDERS: PCP Family Medicine; Visit Provider Internal Medicine | DX: E05.90 Thyrotoxicosis, unspecified without thyrotoxic crisis or storm (principal); R74.01 Elevation of levels of liver transaminase levels; I10 Essential (primary) hypertension; E11.42 Type 2 diabetes mellitus with diabetic polyneuropathy; Z79.4 Long term (current) use of insulin; N52.9 Male erectile dysfunction, unspecified; Z79.84 Long term (current) use of oral hypoglycemic drugs | CPT/HCPCS: 99214 ==

== ENCOUNTER 2024-03-13 15:03 | Emergency (ER) | payer MEDICARE, SELFPAY ==
[2024-03-13 15:05] VITALS: BP 146/73; PULSE 61; RESP 18; TEMP 36.7; O2SAT 96; BMI 31.3
--- NOTE | 2024-03-13 15:07 | ECG_ITS ---
[facility] Test Date: 2024-03-13 Pat Name: Solis Fischer Department: Room: Gender: Male Personal Injury Law Specialist: : 1960 Requested By: Darian Friedman Order Number: [id number] Lei MD: Luis Felipe Taylor M.D. Measurements Intervals [place] Rate: 61 P: 60 ID: 225 QRS: 56 QRSD: 89 T: 178 QT: 433 QTc: 438 Interpretive Statements SINUS RHYTHM WITH FIRST DEGREE AV BLOCK ST DEVIATION AND MARKED T-WAVE ABNORMALITY, CONSIDER ANTEROLATERAL ISCHEMIA [-0.5+ mV T-WAVE IN I/aVL/V3-V6] ST DEVIATION AND MODERATE T-WAVE ABNORMALITY, CONSIDER INFERIOR ISCHEMIA [-0.1+ mV T-WAVE IN II/aVF] Compared to ECG 11/18/2023 11:53:10 First degree AV block now present T-wave abnormality still present Possible ischemia still present Electronically Signed On 03-13-2024 16:19:08 CDT by Luis Felipe Taylor M.D. [id number]
--- NOTE | 2024-03-13 15:07 | XRR_ITS ---
PROCEDURE INFORMATION: Exam: XR Chest Exam date and time: 03/13/2024 3:16 PM Age: 64 years old Clinical indication: Pain; Angina pectoris; Prior surgery; Surgery date: 6+ months; Surgery type: Cardiac stents; Additional info: Cp TECHNIQUE: Imaging protocol: Radiologic exam of the chest. Views: 1 view. COMPARISON: CR XR chest 2V* [id number] 11/18/2023 10:40 AM FINDINGS: Lungs: Minor granulomatous changes. No consolidation. Pleural spaces: Unremarkable. No pleural effusion. No pneumothorax. Heart/Mediastinum: Unremarkable. No cardiomegaly. Bones/joints: Unremarkable. XR/XR chest 1V portable [id number] IMPRESSION: No acute findings.
--- NOTE | 2024-03-13 15:08 | ED_ITS ---
HPI - Chest Pain 2 General: Chief Complaint: Chest Pain Stated Complaint: Chest pain Time Seen by Provider: 03/13/24 15:04 Source: patient and EMS Mode of arrival: EMS Limitations: no limitations History of Present Illness: 64-year-old male has extensive history o f coronary artery disease he had had a heart attack in 2017 and had stents placed at that time. States that over the last 2 days been having chest pain that is much worse with exertion states a pressure type pain in the center of his chest he is given aspirin and route he is now pain-free. He denies any cough or fever Associated symptoms: Deny abdominal pain, dyspnea, fever(s), nausea or vomiting Review of Systems 2 Const: Denies: fever(s), chills, body aches or change in appetite ENMT: Denies: throat pain or dental pain Card: Reports: chest pain Resp: Denies: dyspnea GI: Denies: abdominal pain, nausea, vomiting or diarrhea : Denies: dysuria Musc: Denies: neck pain or back pain Skin/Breast: Denies: rash Neuro: Denies: headache(s) PFSH ED 2 PFSH: Medical History Abnormal EKG History of myocardial infarction Diabetic neuropathy CAD (coronary artery disease) History of stent Essential hypertension Hyperlipidemia Type 2 diabetes mellitus Surgical History Stented coronary artery Family History Mother CAD (coronary artery disease) Sister Cancer Social History Smoking and tobacco/nicotine status: current every day tobacco/nicotine user cigarettes Packs smoked per day: 1.5 Quit status (tobacco/nicotine): not considering quitting Second hand smoke exposure: No Alcohol intake: never Substance/Drug Use: never Current gender identity: Male Physical Exam 2 Const: COMMON NORMALS: patient oriented x3 HENMT: COMMON NORMALS: normocephalic and atraumatic HEAD & SCALP: n ormocephalic and atraumatic Eye: COMMON NORMALS: conjunctivae normal CONJUNCTIVA: Yes conjunctivae normal Neck/C-Spine: COMMON NORMALS: full ROM and supple Chest: COMMONS NORMALS: normal inspection of the chest and normal palpation of entire chest wall Resp: COMMON NORMALS: normal respiratory effort, No retractions, No use of accessory muscles and clear to auscultation bilaterally AUSCULTATION: clear to auscultation bilaterally Cardio: COMMON NORMALS: regular rate, regular rhythm and No murmurs present (Cardio) RATE: regular rate RHYTHM: regular rhythm GI: COMMON NORMALS: Normal to inspection, nondistended, normoactive bowel sounds present, Soft to palpation, non-tender and no masses PALPATION: Yes Soft to palpation Extremity: COMMON NORMALS: normal to inspection and full ROM Neuro: COMMON NORMALS: patient oriented x3, moves all extremities and no focal motor deficits Psych: COMMON NORMALS: mental status grossly normal, Normal thought process present and cooperative THOUGHT PROCESS: Normal thought process present Skin: COMMON NORMALS: no rashes or lesions noted and no wounds GENERAL SKIN EXAM: no rashes or lesions noted Course 2 Vital Signs: Vital signs: Vital Signs Temperature 98.1 F 03/13/24 18:00 Pulse Rate 58 L 03/13/24 18:00 Respiratory Rate 18 03/13/24 18:00 Blood Pressure 146/73 03/13/24 18:00 Pulse Oximetry 95 03/13/24 18:00 Oxygen Delivery Me thod Room Air 03/13/24 16:03 MDM - Chest Pain Medical Decision Making Patient presents here with chest pain I did recommend admission after his initial troponin he refused stating he does not want to stay did convince him to stay for 2-hour to hour Trope was negative I spoke to him again he states he does not want to stay they rather follow-up with his PCP we will get him follow- up with cardiology informed if he changes his mind about admission or worsens he is to return he understands agrees to plan. Medical Records I reviewed the patient's medical records. Lab Data I reviewed the patient's lab results. 03/13/24 15:28 03/13/24 15:07 Radiology Impressions Chest X-Ray 03/13/24 15:07 IMPRESSION: No acute findings. Laboratory Results WBC 8.06 10^3/uL (3.29-11.43) 03/13/24 15:28 Corrected WBC Cancelled 03/13/24 15:07 RBC 4.78 10^6/uL (3.85-5.65) 03/13/24 15: Hgb 14.80 g/dL (11.27-16.99) 03/13/24 15: Hct 41.7 % (37-53) 03/13/24 15: MCV 87.2 fl (82-101) 03/13/24 15: MCH 31.0 pg (27-33) 03/13/24 15: MCHC 35.5 g/dL (30-55) 03/13/24 15: RDW 12.9 % (12.1-15.1) 03/13/24 15: Plt Count 185 10^3/cmm (157-399) 03/13/24 15: MPV 10.1 fL (7.4-10.4) 03/13/24: Gran % Cancelled 03/13/24 15:07 Neut % (Auto) 55.1 % 03/13/24 15: Lymph % (Auto) 31.4 % 03/13/24 15:28 [place] % (Auto) 9.8 % 03/13/24 15:28 Eos % (Auto) 3.0 % 03/13/24 15:28 Baso % (Auto) 0.6 % 03/13/24:28 Neut # (Auto) 4.44 10^3/uL (1.8-7.7) 03/13/24: Lymph # (Auto) 2.5 10^3/uL (0.8-4.8) 03/13/24: [place] # (Auto) 0.8 10^3/uL (0.2-0.9) 03/13/24 15:28 Eos # (Auto) 0.2 10^3/uL (0.0-0.8) 03/13/24:28 Baso # (Auto) 0.1 10^3/uL (0.0-0.1) 03/13/24: Absolute Gran (auto) Cancelled 03/13/24 15:07 Nucleated RBC % (auto) 0 % 03/13/24: Nucleated RBCs # 0.0 /100WBC 03/13/24 15:28 Sodium 137 mmol/L (136-145) 03/13/24 15:07 Potassium 4.6 mmol/L (3.5-5.1) 03/13/24 15:07 Chloride 101 mmol/L (98-107) 03/13/24 15:07 Carbon Dioxide 22 mmol/L (22-29) 03/13/24 15:07 Anion Gap 18.6 (5-19) 03/13/24 15:07 BUN 13 mg/dL (8-23) 03/13/24 15:07 Creatinine 1.0 mg/dL (0.7-1.2) 03/13/24 15:07 GFR Calculation 75.0 mL/min (90-130) L 03/13/24 15:07 Glucose 159 mg/dL (65-115) H 03/13/24 15:07 POC Glucose 165 mg/dL (70-110) H 03/13/24 15:25 Calculated Osmolality 287 mOsm/kg (285-295) 03/13/24 15:07 Calcium 9.3 mg/dL (8.5-10.5) 03/13/24 15:07 Total Bilirubin 0.5 mg/dL (0.15-1.2) 03/13/24 15:07 AST 24 U/L (0-40) 03/13/24 15:07 ALT 31 U/L (0-41) 03/13/24 15:07 Alkaline Phosphatase 54 U/L (40-130) 03/13/24 15:07 Troponin T Baseline 16 ng/L (0-15) H 03/13/24 15:07 Troponin T 120 Minute 14.34 ng/L (0-15) 03/13/24 16:53 Delta Troponin T -1.66 ABS# (0-10) L 03/13/24 16:53 Total Protein 6.9 g/dL (6.6-8.7) 03/13/24 15:07 Albumin 4.3 g/dL (3.5-5.2) 03/13/24 15:07 Globulin 2.6 g/dL (1.3-4.6) 03/13/24 15:07 Lipase 36 U/L (13-60) 03/13/24 15:07 All radiology interpretation(s) finalized by discharge EKG Data EKG 1: I personally reviewed and interpreted this EKG as follows: EKG interpretation date: 03/13/24 EKG interpretation time: 15:07 Interpretation: nsr no st elevation t wave inversion in lateral leads unchanged from previous ekg qrs 89 qtc 436 Discharge Plan Discharge Patient Disposition: Home Clinical Impression: Chest pain Condition: Stable Prescriptions: No Action lisinopril 40 mg tablet 40 mg PO QAM 90 Days Qty: 90 2RF clopidogrel 75 mg tablet 75 mg PO QAM 100 Days Qty: 100 2RF Rx Instructions: Pharmacy requests all meds be filled for 100 days metoprolol succinate 50 mg tablet extended release 24 hr 50 mg PO QAM 90 Days Qty: 90 2RF aspirin 81 mg tablet,delayed release (DR/EC) 81 mg PO BEDTIME Qty: 30 5RF methimazole 5 mg tablet 5 mg PO QAM Qty: 90 2RF metformin 500 mg tablet extended release 24 hr See Rx Instructions .ROUTE .COMPLEX Qty: 180 0RF Rx Instructions: 1000mg po qam and 500mg po at bedtime ibuprofen [Advil] 200 mg Tablet 400 mg PO Q6H PRN (Reason: Pain) rosuvastatin 20 mg tablet 20 mg PO QAM Discharge Orders: Discharge ED (Routine); Ordered 03/13/24 Ordered By: Darian Friedman Referrals: Luis Felipe Taylor M.D [Physician] - 1-3 days Lalitha Jules MD [Primary Care Provider] - Discharge Diet: Advance as tolerated Discharge Activity: Resume usual activity Patient Instructions: Chest Pain (ED) Coding Level of Care Code ED Coordinator Of Placement for Andi Solares
[2024-03-13 15:13] VITALS: BP 146/73; PULSE 61; O2SAT 93
[2024-03-13 15:28] LABS: Glucose Point of Care 165 mg/dL (70-110)
[2024-03-13 15:35] LABS: Alanine Aminotransferase 31 U/L (0-41); Albumin Level 4.3 g/dL (3.5-5.2); Alkaline Phosphatase 54 U/L (40-130); Blood Urea Nitrogen 13 mg/dL (8-23); Calcium 9.3 mg/dL (8.5-10.5); Carbon Dioxide 22 mmol/L (22-29); Chloride 101 mmol/L (98-107); Creatinine Clr Calc Pharmacy 76.5404; Globulin 2.6 g/dL (1.3-4.6); Glucose 159 mg/dL (65-115); Lipase 36 U/L (13-60); Osmolality Calculated 287 mOsm/kg (285-295); Sodium 137 mmol/L (136-145); Total Bilirubin 0.5 mg/dL (0.15-1.2); Total Protein 6.9 g/dL (6.6-8.7)
[2024-03-13 15:35] LABS: Basophils # 0.1 10^3/uL (0.0-0.1); Basophils % 0.6 %; Eosinophils # 0.2 10^3/uL (0.0-0.8); Hematocrit 41.7 % (37-53); Lymphocytes # 2.5 10^3/uL (0.8-4.8); Lymphocytes % 31.4 %; Mean Corpuscular HGB Conc 35.5 g/dL (30-55); Mean Corpuscular Volume 87.2 fl (82-101); Mean Platelet Volume 10.1 fL (7.4-10.4); Monocytes # 0.8 10^3/uL (0.2-0.9); Monocytes % 9.8 %; Neutrophils # 4.44 10^3/uL (1.8-7.7); Neutrophils % 55.1 %; Nucleated Red Blood Cells % 0 %; Platelet Count 185 10^3/cmm (157-399); Red Blood Count 4.78 10^6/uL (3.85-5.65); Red Cell Distribution Width 12.9 % (12.1-15.1); White Blood Count 8.06 10^3/uL (3.29-11.43)
[2024-03-13 15:38] LABS: Anion Gap 18.6 (5-19); Aspartate Amino Transferase 24 U/L (0-40); Potassium 4.6 mmol/L (3.5-5.1); Troponin(5th) Baseline 16 ng/L (0-15)
[2024-03-13 16:03] VITALS: BP 146/73; PULSE 58; O2SAT 95
--- NOTE | 2024-03-13 17:06 | ECG_ITS ---
[facility] Test Date: 2024-03-13 Pat Name: Solis Fischer Department: Room: Gender: Male Research Instrumentation Technician: : 1960 Requested By: Darian Friedman Order Number: [id number] Lei MD: Luis Felipe Taylor M.D. Measurements Intervals [place] Rate: 57 P: 42 [place]: 217 QRS: 58 QRSD: 86 T: 178 QT: 451 QTc: 440 Interpretive Statements SINUS BRADYCARDIA WITH FIRST DEGREE AV BLOCK ST DEVIATION AND MODERATE T-WAVE ABNORMALITY, CONSIDER ANTEROLATERAL ISCHEMIA [-0.1+ mV T-WAVE IN V3-V6] ST DEVIATION AND MODERATE T-WAVE ABNORMALITY, CONSIDER INFERIOR ISCHEMIA [-0.1+ mV T-WAVE IN II/aVF] Compared to ECG 03/13/2024 15:07:31 Sinus rhythm no longer present T-wave abnormality still present Possible ischemia still present Electronically Signed On 03-13-2024 17:42:34 CDT by Luis Felipe Taylor M.D. [id number]
[2024-03-13 17:40] LABS: Troponin 5 2HR 14.34 ng/L (0-15); Troponin 5 2HR Delta -1.66 ABS# (0-10)
[2024-03-13 18:00] VITALS: BP 146/73; PULSE 58; RESP 18; TEMP 36.7; O2SAT 95
--- NOTE | 2024-03-14 07:27 | DCPLANNER ---
Message to cardiology for follow up on Chest pain-
== END 2024-03-13 18:01 | disposition home or self-care (01) ==
PROVIDERS: Emergency Provider Emergency Medicine; PCP Family Medicine
DX: R07.9 Chest pain, unspecified (principal); Z79.02 Long term (current) use of antithrombotics/antiplatelets; Z79.82 Long term (current) use of aspirin; Z79.84 Long term (current) use of oral hypoglycemic drugs; F17.210 Nicotine dependence, cigarettes, uncomplicated; I25.2 Old myocardial infarction; E11.40 Type 2 diabetes mellitus with diabetic neuropathy, unspecified; I25.10 Atherosclerotic heart disease of native coronary artery without angina pectoris; I10 Essential (primary) hypertension; E11.9 Type 2 diabetes mellitus without complications
CPT/HCPCS: 36415; 36416; 71045; 80053; 82962; 83690; 84484; 85025; 93005; 99285

== ENCOUNTER → 2024-08-09 13:19 | Outpatient (BNVA) | payer MEDICARE, SELFPAY | PROVIDERS: PCP Family Medicine; Visit Provider Nurse Practitioner Family | DX: E11.42 Type 2 diabetes mellitus with diabetic polyneuropathy (principal); Z79.4 Long term (current) use of insulin; I10 Essential (primary) hypertension; R53.83 Other fatigue | CPT/HCPCS: 80053; 80061; 83036; 85025 ==

== ENCOUNTER 2024-09-11 09:33 | Outpatient (CLI) | payer MEDICARE, SELFPAY ==
[2024-09-11 10:25] LABS: Estmated Average Glucose 197; Hemoglobin A1C 8.5 % (4.0-6.0)
[2024-09-11 10:35] LABS: Alanine Aminotransferase 25 U/L (0-41); Albumin Level 4.7 g/dL (3.5-5.2); Alkaline Phosphatase 73 U/L (40-130); Anion Gap 17.3 (5-19); Aspartate Amino Transferase 17 U/L (0-40); Blood Urea Nitrogen 12 mg/dL (8-23); Calcium 9.7 mg/dL (8.5-10.5); Carbon Dioxide 26 mmol/L (22-29); Chloride 97 mmol/L (98-107); Chol HDL Ratio 3.38 mg/dL (1.0-5.00); Cholesterol 186 mg/dL (0-200); Free T4 Free Thyroxine 1.21 ng/dL (0.82-1.77); Glomerular Filtration Rate 113.2 mL/min (90-130); Glucose 168 mg/dL (65-115); HDL Cholesterol 55 mg/dL (60-100); LDL Cholesterol Calculated 94 mg/dL (50-129); LDL HDL Ratio 1.71 RATIO (0.00-3.22); Osmolality Calculated 286 mOsm/kg (285-295); Potassium 4.3 mmol/L (3.5-5.1); Sodium 136 mmol/L (136-145); Testosterone Total 322.6 ng/dL (193-740); Total Bilirubin 0.4 mg/dL (0.15-1.2); Total Protein 7.7 g/dL (6.6-8.7); Triglycerides 185 mg/dL (0-150)
[2024-09-11 10:42] LABS: Creatinine Urine, Random 57 mg/dL (39-259); Microalbumin Random Urine 15 ug/dL (0-20)
[2024-09-11 10:44] LABS: Microalbum Creatinine Ratio Ur 263 mg/dL (0-20)
[2024-09-12 09:13] LABS: T3 Total 137 ng/dL (76-181)
== END 2024-09-11 09:34 | disposition home or self-care (01) ==
LOC: LAB 09:35
PROVIDERS: PCP Family Medicine; Visit Provider Internal Medicine
DX: Z79.4 Long term (current) use of insulin (principal); E11.42 Type 2 diabetes mellitus with diabetic polyneuropathy; E05.90 Thyrotoxicosis, unspecified without thyrotoxic crisis or storm; N52.9 Male erectile dysfunction, unspecified
CPT/HCPCS: 36415; 80053; 80061; 82044; 83036; 84403; 84439; 84443; 84480

== ENCOUNTER → 2024-09-13 10:05 | Outpatient (BNVA) | payer MEDICARE, SELFPAY | PROVIDERS: PCP Family Medicine; Visit Provider Internal Medicine | DX: E11.42 Type 2 diabetes mellitus with diabetic polyneuropathy (principal); E05.90 Thyrotoxicosis, unspecified without thyrotoxic crisis or storm; I10 Essential (primary) hypertension; E78.2 Mixed hyperlipidemia; R74.01 Elevation of levels of liver transaminase levels; N52.9 Male erectile dysfunction, unspecified; Z79.84 Long term (current) use of oral hypoglycemic drugs | CPT/HCPCS: 99214 ==

== ENCOUNTER → 2024-10-17 13:12 | Outpatient (BNVA) | payer MEDICARE, SELFPAY | PROVIDERS: PCP Family Medicine; Visit Provider Internal Medicine | DX: R07.9 Chest pain, unspecified (principal) | CPT/HCPCS: 93005; 99204 ==

== ENCOUNTER 2024-11-18 15:19 | Emergency (ER) | payer MEDICARE, SELFPAY ==
[2024-11-18 15:49] VITALS: BP 179/78; PULSE 76; RESP 18; TEMP 36.7; O2SAT 92; BMI 29.0
[2024-11-19 10:22] LABS: Add Urine Microscopic? NO
[2024-11-19 11:01] LABS: Bilirubin Urine Negative (Negative); Blood Urine Trace (Negative); Glucose Urine UA Negative (Normal); Ketones Urine Negative (Negative); Nitrate Urine Negative (Negative); Protein Urine 300 (Negative); Specific Gravity, Urine 1.025 (1.005-1.030); Urine Appearance Clear (CLEAR); Urine Color Yellow (Yellow); Urobilinogen Urine 0.2 mg/dL (Negative); pH Urine 7 (5-7)
[2024-11-19 11:02] LABS: Leukocyte Esterase Urine Negative (Negative)
[2024-11-21 16:55] LABS: Charge for UA Resulting for Rev
== END 2024-11-18 17:31 | disposition left against medical advice (07) ==
PROVIDERS: Nurse Practitioner; Emergency Provider Family Medicine; PCP Family Medicine
DX: Z53.21 Procedure and treatment not carried out due to patient leaving prior to being seen by health care provider (principal)
CPT/HCPCS: 87086

== ENCOUNTER 2024-12-07 06:19 | Emergency (ER) | payer MEDICARE, SELFPAY ==
[2024-12-07 06:26] VITALS: BP 164/75; PULSE 58; TEMP 36.6; O2SAT 94; BMI 30.4
--- NOTE | 2024-12-07 06:34 | ECG_ITS ---
[facility]: 2024[facility]07 Pat Name: Solis Fischer Department: Room: Gender: Male Critical Care Unit Nurse: : 1960 Requested By: Ajay Fields Order Number: [id number] Lei MD: Luis Felipe Taylor M.D. Measurements Intervals [place] Rate: 58 P: 62 [place]: 264 QRS: 51 QRSD: 86 T: 206 QT: 452 QTc: 446 Interpretive Statements SINUS BRADYCARDIA WITH FIRST DEGREE AV BLOCK ST DEVIATION AND MARKED T-WAVE ABNORMALITY, CONSIDER ANTEROLATERAL ISCHEMIA [-0.5+ mV T-WAVE IN I/aVL/V3-V6] ST DEVIATION AND MODERATE T-WAVE ABNORMALITY, CONSIDER INFERIOR ISCHEMIA [-0.1+ mV T-WAVE IN II/aVF] Compared to ECG 10/17/2024 13:27:36 Sinus rhythm no longer present T-wave abnormality still present Possible ischemia still present Electronically Signed On 12-08-2024 07:46:01 KITCHEN BATH DESIGNER by Luis Felipe Taylor M.D. [id number] [id number]
--- NOTE | 2024-12-07 06:56 | W.ED.CHESTPA ---
HPI - Chest Pain General: Chief Complaint: Chest Pain Stated Complaint: right side chest pain when coughing Time Seen by Provider: 12/07/24 06:28 History of Present Illness: 64-year-old male presents emergency room with complaint of chest pain. Localizes pain to the right side of the chest worsening he takes a deep breath or cough. He has not had any fever sweats chills no hemoptysis no productive cough symptoms not brought about by exertion. Associated symptoms: Deny abdominal pain, dyspnea or fever(s) Related Data Home Medications ?Medication ?Instructions ?Recorded ?Confirmed ibuprofen 200 mg tablet (Advil) 400 mg PO Q6H PRN Pain 05/10/21 12/07/24 rosuvastatin 20 mg tablet 20 mg PO QAM 11/18/23 12/07/24 budesonide-formoterol HFA 160 1 puff inhalation BID 12/07/24 12/07/24 mcg-4.5 mcg/actuation aerosol inhaler (Symbicort) methimazole 5 mg tablet 5 mg PO QAM 12/07/24 12/07/24 sitagliptin phosphate 100 mg 100 mg PO QPM 12/07/24 12/07/24 tablet (Januvia) Previous Rx's ?Medication ?Instructions ?Recorded aspirin 81 mg tablet,delayed 81 mg PO BEDTIME #120 tabs 05/07/24 release clopidogrel 75 mg tablet 75 mg PO QAM 100 days #100 tabs 05/07/24 lisinopril 40 mg tablet 40 mg PO QAM 90 days #90 tabs 05/07/24 metoprolol succinate 50 mg 50 mg PO QAM 90 days #90 tabs 05/07/24 tablet,extended release 24 hr albuterol sulfate 90 mcg/actuation 2 puff inhalation QID PRN 08/28/24 aerosol inhaler shortness of breath or wheezing 30 days #18 grams hydrocodone 5 mg-acetaminophen 325 1 tab PO Q6H PRN pain #15 tabs 12/07/24 mg tablet Allergies Allergy/AdvReac Type Severity Reaction Status Date / Time No Known Allergies Allergy Verified 11/19/24 09:57 Review of Systems Const: Denies: fever(s) or chills Card: Reports: chest pain Resp: Denies: dyspnea GI: Denies: abdominal pain : Denies: dysuria, urinary frequency or urinary urgency Musc: Denies: neck pain or back pain Skin/Breast: Denies: rash PFSH ED PFSH: Medical History Abnormal EKG History of myocardial infarction Diabetic neuropathy CAD (coronary artery disease) History of stent Essential hypertension Hyperlipidemia Type 2 diabetes mellitus Surgical History Stented coronary artery Family History Mother CAD (coronary artery disease) Sister Cancer Social History Smoking and tobacco/nicotine status: current every day tobacco/nicotine user cigarettes Packs smoked per day: 1.5 Years cigarettes smoked: 45 Second hand smoke exposure: No Alcohol intake: never Substance/Drug Use: never Current gender identity: Male Physical Exam Const: GENERAL APPEARANCE: cooperative ORIENTATION/CONSCIOUSNESS: Yes awake, Yes oriented to person, Yes oriented to place and Yes oriented to time HENMT: COMMON NORMALS: normocephalic, atraumatic and hearing grossly normal bilaterally HEAD & SCALP: normocephalic and atraumatic Resp: COMMON NORMALS: normal respiratory effort, No retractions, No use of accessory muscles and clear to auscultation bilaterally AUSCULTATION: clear to auscultation bilaterally Cardio: COMMON NORMALS: regular rate, regular rhythm and No murmurs present (Cardio) RATE: regular rate RHYTHM: regular rhythm GI: COMMON NORMALS: Soft to palpation and No hepatosplenomegaly present AUSCULTATION: Yes normoactive bowel sounds PALPATION: Yes Soft to palpation, No Tenderness to palpation present (GI), No Guarding due to palpation present (GI) and Yes No hepatosplenomegaly present Extremity: COMMON NORMALS: normal to inspection, capillary refill normal, no clubbing, cyanosis or edema, no calf tenderness and no pedal edema Neuro: SENSORIUM/ORIENTATION: Yes oriented to person, Yes oriented to place and Yes oriented to time Skin: COMMON NORMALS: no rashes or lesions noted GENERAL SKIN EXAM: no rashes or lesions noted Course Vital Signs: Vital signs: Vital Signs Temperature 97.8 F 12/07/24 06:26 Pulse Rate 55 L 12/07/24 10:28 Respiratory Rate 25 H 02/28/25 08:46 Blood Pressure 155/83 12/07/24 10:28 Pulse Oximetry 97 12/07/24 10:28 Oxygen Delivery Me thod Room Air 12/07/24 06:26 MDM - Chest Pain Medical Decision Making Patient has a 2 cm left lower lobe endobronchial mass with obstruction beyond the mass. No sign of pneumonia white count normal no PE on exam. Will discharge patient home reviewed findings with him we will set him up through his primary care to see pulmonology I contacted his primary care doctor she is aware of the findings. She will make arrangements for referral to pulmonology to help expedite the process Medical Records I reviewed the patient's medical records. Lab Data I reviewed the patient's lab results. 12/07/24 07:09 12/07/24 07:09 Radiology Impressions Chest X-Ray 12/07/24 06:57 IMPRESSION: No acute pulmonary finding. Chest CTA 12/07/24 07:34 IMPRESSION: 1. No evidence of pulmonary embolus. 2. Endobronchial lesion in the distal LEFT mainstem bronchus with postobstructive atelectasis in the lingula and LEFT upper lobe. Recommend further evaluation with bronchoscopy. Findings indeterminate but suspicious for neoplasm. 3. Small esophageal hiatal hernia. Notified Ajay Joseph DO at 12/07/2024 8:50 AM. Laboratory Results WBC 7.36 10^3/uL (3.29-11.43) 12/07/24 07:09 RBC 5.60 10^6/uL (3.85-5.65) 12/07/24 07:09 Hgb 16.40 g/dL (11.27-16.99) 12/07/24 07:09 Hct 47.0 % (37-53) 12/07/24 07:09 MCV 83.9 fl (82-101) 12/07/24 07:09 MCH 29.3 pg (27-33) 12/07/24 07:09 MCHC 34.9 g/dL (30-55) 12/07/24 07:09 RDW 12.2 % (12.1-15.1) 12/07/24 07:09 Plt Count 219 10^3/cmm (157-399) 12/07/24 07:09 MPV 10.0 fL (7.4-10.4) 12/07/24 07:09 Neut % (Auto) 59.2 % 12/07/24 07:09 Lymph % (Auto) 27.7 % 12/07/24 07:09 [place] % (Auto) 9.2 % 12/07/24 07:09 Eos % (Auto) 2.3 % 12/07/24 07:09 Baso % (Auto) 1.1 % 12/07/24 07:09 Neut # (Auto) 4.35 10^3/uL (1.8-7.7) 12/07/24 07:09 Lymph # (Auto) 2.0 10^3/uL (0.8-4.8) 12/07/24 07:09 [place] # (Auto) 0.7 10^3/uL (0.2-0.9) 12/07/24 07:09 Eos # (Auto) 0.2 10^3/uL (0.0-0.8) 12/07/24 07:09 Baso # (Auto) 0.1 10^3/uL (0.0-0.1) 12/07/24 07:09 Nucleated RBC % (auto) 0 % 12/07/24 07:09 Nucleated RBCs # 0.0 /100WBC 12/07/24 07:09 Sodium 133 mmol/L (136-145) L 12/07/24 07:09 Potassium 4.6 mmol/L (3.5-5.1) 12/07/24 07:09 Chloride 96 mmol/L (98-107) L 12/07/24 07:09 Carbon Dioxide 26 mmol/L (22-29) 12/07/24 07:09 Anion Gap 15.6 (5-19) 12/07/24 07:09 BUN 13 mg/dL (8-23) 12/07/24 07:09 Creatinine 0.8 mg/dL (0.7-1.2) 12/07/24 07:09 GFR Calculation 97.0 mL/min (90-130) 12/07/24 07:09 Glucose 212 mg/dL (65-115) H 12/07/24 07:09 Calculated Osmolality 282 mOsm/kg (285-295) L 12/07/24 07:09 Calcium 10.0 mg/dL (8.5-10.5) 12/07/24 07:09 Total Bilirubin 0.5 mg/dL (0.15-1.2) 12/07/24 07:09 AST 16 U/L (0-40) 12/07/24 07:09 ALT 26 U/L (0-41) 12/07/24 07:09 Alkaline Phosphatase 67 U/L (40-130) 12/07/24 07:09 Troponin T Baseline 16 ng/L (0-15) H 12/07/24 07:09 Troponin T 120 Minute 17.12 ng/L (0-15) H 12/07/24 09:05 Delta Troponin T 1.12 ABS# (0-10) 12/07/24 09:05 Total Protein 7.1 g/dL (6.6-8.7) 12/07/24 07:09 Albumin 4.4 g/dL (3.5-5.2) 12/07/24 07:09 Globulin 2.7 g/dL (1.3-4.6) 12/07/24 07:09 Influenza A (PCR) Negative (Negative) 12/07/24 07:08 Influenza Type B (PCR) Negative (Negative) 12/07/24 07:08 RSV (PCR) Negative (Negative) 12/07/24 07:08 SARS-CoV-2 (PCR) Negative (Negative) 12/07/24 07:08 All radiology interpretation(s) finalized by discharge Discharge Plan Discharge Patient Disposition: Home Clinical Impression: Endobronchial mass Condition: Stable Prescriptions: New hydrocodone-acetaminophen 5-325 mg tablet 1 tab PO Q6H PRN (Reason: pain) Qty: 15 0RF No Action clopidogrel 75 mg tablet 75 mg PO QAM 100 Days Qty: 100 2RF aspirin 81 mg tablet,delayed release (DR/EC) 81 mg PO BEDTIME Qty: 120 3RF lisinopril 40 mg tablet 40 mg PO QAM 90 Days Qty: 90 2RF metoprolol succinate 50 mg tablet extended release 24 hr 50 mg PO QAM 90 Days Qty: 90 2RF albuterol sulfate 90 mcg/actuation HFA aerosol inhaler 2 puff inhalation QID PRN (Reason: shortness of breath or wheezing) 30 Days Qty: 18 5RF ibuprofen [Advil] 200 mg Tablet 400 mg PO Q6H PRN (Reason: Pain) rosuvastatin 20 mg tablet 20 mg PO QAM methimazole 5 mg tablet 5 mg PO QAM Januvia 100 mg tablet 100 mg PO QPM budesonide-formoterol [Symbicort] 160-4.5 mcg/actuation HFA aerosol inhaler 1 puff inhalation BID Discharge Orders: Discharge ED (Routine); Ordered 12/07/24 Ordered By: Ajay Joseph Referrals: Lalitha Jules MD [Primary Care Provider] - Discharge Diet: Usual diet Discharge Activity: Resume usual activity Patient Instructions: Opioid Safety, Pain Management Activity Restrictions/Additional Instructions: Thank you for choosing [facility] for your healthcare needs today. It is very important that you follow up as instructed or that you return to the Emergency Department should you have concerns or if your condition changes or worsens in any way. You were seen in the emergency room with chest discomfort. Your cardiac enzymes and EKG did not show any acute changes. Chest x-ray did show an abnormality and CT showed endobronchial mass in the left lower lobe. This will have to be evaluated further. Have discussed Dr. Jules she will help you arrange for further follow-up with pulmonology Print Language: Congolese Coding Level of Care Code ED Extractive Metallurgist for Andi Solares
--- NOTE | 2024-12-07 06:57 | XRR_ITS ---
PROCEDURE INFORMATION: Exam: XR Chest Exam date and time: 12/07/2024 7:14 AM Age: 64 years old Clinical indication: Cough; Additional info: Chest pain TECHNIQUE: Imaging protocol: Radiologic exam of the chest. Views: 1 view. COMPARISON: CR XR chest 1V portable [id number] 03/13/2024 3:16 PM FINDINGS: Lungs: The pulmonary vessels are within normal limits. Bilateral calcified granulomas are seen. Pleural spaces: No pneumothorax. Heart/Mediastinum: The cardiomediastinal silhouette is within normal limits. Bones/joints: Osseous structure is unremarkable. XR/XR chest 1V portable [id number] IMPRESSION: No acute pulmonary finding.
[2024-12-07] MEDS: aspirin 81 mg Chew Tablet 324 MG PO (07:14)
[2024-12-07 07:15] VITALS: BP 164/75; PULSE 57; RESP 20; O2SAT 95
[2024-12-07 07:18] LABS: Basophils # 0.1 10^3/uL (0.0-0.1); Basophils % 1.1 %; Eosinophils # 0.2 10^3/uL (0.0-0.8); Eosinophils % 2.3 %; Lymphocytes % 27.7 %; Mean Corpuscular HGB Conc 34.9 g/dL (30-55); Mean Corpuscular Hemoglobin 29.3 pg (27-33); Mean Corpuscular Volume 83.9 fl (82-101); Monocytes # 0.7 10^3/uL (0.2-0.9); Monocytes % 9.2 %; Neutrophils # 4.35 10^3/uL (1.8-7.7); Neutrophils % 59.2 %; Nucleated Red Blood Cells % 0 %; Platelet Count 219 10^3/cmm (157-399); Red Cell Distribution Width 12.2 % (12.1-15.1); White Blood Count 7.36 10^3/uL (3.29-11.43)
--- NOTE | 2024-12-07 07:34 | CT_ITS ---
WS: [id number] CTA OF THE CHEST WITH PULMONARY EMBOLISM PROTOCOL TECHNIQUE: High-resolution contrast enhanced CTA of the chest with coronal and sagittal reformatted images with pulmonary embolism protocol. MIP images are also reviewed. CLINICAL INFORMATION: Sudden onset chest pain, left pleural effusion COMPARISON: None. DLP: 450.[address] scans at [facility] use at least one of these dose optimization techniques: automated exposure control; mA and/or kV adjustment per patient size (includes targeted exams where dose is matched to clinical indication); or iterative reconstruction. FINDINGS: Proximal pulmonary arteries are normal. Normal segmental and subsegmental pulmonary arteries. No evidence of pulmonary embolus. Endobronchial lesion in the LEFT distal mainstem extending into the upper lobe bronchus. Endobronchial lesion measures approximately 2.1 x 1.5 cm. Recommend further evaluation with bronchoscopy. Associated postobstructive atelectasis in the lingula and LEFT upper lobe. Normal caliber thoracic aorta. Aortic calcification. Coronary calcification. RIGHT thyroid nodule measuring 12 mm. Dense coronary calcification. No mediastinal or hilar lymphadenopathy. Few normal size retrocrural lymph node. 6 mm paraesophageal lymph node. Small esophageal hiatal hernia. No axillary lymphadenopathy. Splenic granulomas. Splenic artery calcification. Fatty atrophy of the pancreas. Adrenal glands are normal. Hypertrophic changes thoracic spine with ankylosis. Noncalcified nodule RIGHT upper lobe measuring [address]/CT angio chest PE protcl [id number] IMPRESSION: 1. No evidence of pulmonary embolus. 2. Endobronchial lesion in the distal LEFT mainstem bronchus with postobstruct arianne atelectasis in the lingula and LEFT upper lobe. Recommend further evaluatio n with bronchoscopy. Findings indeterminate but suspicious for neoplasm. 3. Small esophageal hiatal hernia. Notified Ajay Joseph DO at 12/07/2024 8:50 AM.
[2024-12-07 07:40] LABS: Troponin(5th) Baseline 16 ng/L (0-15)
[2024-12-07 07:44] LABS: Alanine Aminotransferase 26 U/L (0-41); Albumin Level 4.4 g/dL (3.5-5.2); Alkaline Phosphatase 67 U/L (40-130); Anion Gap 15.6 (5-19); Aspartate Amino Transferase 16 U/L (0-40); Blood Urea Nitrogen 13 mg/dL (8-23); Carbon Dioxide 26 mmol/L (22-29); Chloride 96 mmol/L (98-107); Creatinine Clr Calc Pharmacy 94.4943; Globulin 2.7 g/dL (1.3-4.6); Glucose 212 mg/dL (65-115); Osmolality Calculated 282 mOsm/kg (285-295); Potassium 4.6 mmol/L (3.5-5.1); Sodium 133 mmol/L (136-145); Total Bilirubin 0.5 mg/dL (0.15-1.2); Total Protein 7.1 g/dL (6.6-8.7)
[2024-12-07] MEDS: iohexol 350 mg/mL 500 mL Btl (per mL) IV (08:00)
[2024-12-07 08:02] LABS: Influenza A NEGATIVE (Negative); Influenza B NEGATIVE (Negative); Respiratory Syncytial Virus Ce NEGATIVE (Negative); SARS-CoV-2 PCR NEGATIVE (Negative)
--- NOTE | 2024-12-07 08:13 | ECG_ITS ---
[facility] Date: 2024-12-07 Pat Name: Solis Fischer Department: Room: Gender: Male Clinical Resource Director: : [id number] Requested By: Ajay Fields Order Number: [id number] Lei MD: Luis Felipe Taylor M.D. Measurements Intervals Kelly Rate: 54 P: 67 MD: 278 QRS: 37 QRSD: 83 T: 190 QT: 460 QTc: 437 Interpretive Statements SINUS BRADYCARDIA WITH FIRST DEGREE AV BLOCK ST DEVIATION AND MARKED T-WAVE ABNORMALITY, CONSIDER ANTEROLATERAL ISCHEMIA [-0.5+ mV T-WAVE IN I/aVL/V3-V6] ST DEVIATION AND MODERATE T-WAVE ABNORMALITY, CONSIDER INFERIOR ISCHEMIA [-0.1+ mV T-WAVE IN II/aVF] Compared to ECG 12/07/2024 06:27:30 No significant changes Electronically Signed On 12-08-2024 08:18:12 SLATE SPLITTING SUPERVISOR by Luis Felipe Taylor M.D. [email or web address]
[2024-12-07 08:46] VITALS: PULSE 57; RESP 25; O2SAT 98
[2024-12-07 09:27] LABS: Troponin 5 2HR 17.12 ng/L (0-15); Troponin 5 2HR Delta 1.12 ABS# (0-10)
[2024-12-07 10:28] VITALS: BP 155/83; PULSE 55; O2SAT 97
== END 2024-12-07 10:30 | disposition home or self-care (01) ==
PROVIDERS: Emergency Provider Family Medicine; PCP Family Medicine
DX: J98.09 Other diseases of bronchus, not elsewhere classified (principal); Z79.02 Long term (current) use of antithrombotics/antiplatelets; Z79.82 Long term (current) use of aspirin; Z11.52 Encounter for screening for COVID-19; F17.210 Nicotine dependence, cigarettes, uncomplicated; E11.40 Type 2 diabetes mellitus with diabetic neuropathy, unspecified; E78.5 Hyperlipidemia, unspecified; I10 Essential (primary) hypertension; I25.10 Atherosclerotic heart disease of native coronary artery without angina pectoris
CPT/HCPCS: 71045; 71275; 80053; 84484; 85025; 87637; 93005; 99285

== ENCOUNTER → 2024-12-10 10:32 | Outpatient (BNVA) | payer MEDICARE, SELFPAY | PROVIDERS: PCP Family Medicine; Visit Provider Internal Medicine | DX: E05.90 Thyrotoxicosis, unspecified without thyrotoxic crisis or storm (principal); R74.01 Elevation of levels of liver transaminase levels; I10 Essential (primary) hypertension; E11.42 Type 2 diabetes mellitus with diabetic polyneuropathy; Z79.4 Long term (current) use of insulin; N52.9 Male erectile dysfunction, unspecified | CPT/HCPCS: 99214 ==

== ENCOUNTER → 2024-12-20 09:46 | Outpatient (BNVA) | payer MEDICARE, SELFPAY | PROVIDERS: PCP Family Medicine; Visit Provider Family Medicine | DX: E11.9 Type 2 diabetes mellitus without complications (principal); E11.42 Type 2 diabetes mellitus with diabetic polyneuropathy; Z79.4 Long term (current) use of insulin | CPT/HCPCS: 83036 ==

== ENCOUNTER → 2024-12-24 10:06 | Outpatient (BNVA) | payer MEDICARE, SELFPAY | PROVIDERS: PCP Family Medicine; Visit Provider Nurse Practitioner | DX: R05.9 Cough, unspecified (principal); R10.9 Unspecified abdominal pain | CPT/HCPCS: 81000; 87400; 87426 ==

== ENCOUNTER → 2025-05-20 08:50 | Outpatient (BNVA) | payer MEDICARE, SELFPAY | PROVIDERS: Family Provider Family Medicine; PCP Family Medicine; Visit Provider Family Medicine | DX: E11.42 Type 2 diabetes mellitus with diabetic polyneuropathy (principal); I25.10 Atherosclerotic heart disease of native coronary artery without angina pectoris; E05.90 Thyrotoxicosis, unspecified without thyrotoxic crisis or storm; N52.9 Male erectile dysfunction, unspecified; Z79.4 Long term (current) use of insulin | CPT/HCPCS: 80053; 80061; 82043; 83036; 84403; 84439; 84443; 85025 ==

== ENCOUNTER → 2025-06-17 10:36 | Outpatient (BNVA) | payer MEDICARE, SELFPAY | PROVIDERS: Family Provider Family Medicine; PCP Family Medicine; Visit Provider Family Medicine | DX: E11.42 Type 2 diabetes mellitus with diabetic polyneuropathy (principal); E05.90 Thyrotoxicosis, unspecified without thyrotoxic crisis or storm; E03.9 Hypothyroidism, unspecified; Z79.4 Long term (current) use of insulin | CPT/HCPCS: 83036; 84439; 84443; 84481 ==